=== PATIENT | male | born 1950 | race Caucasian/White ===

== ENCOUNTER 2017-01-07 08:08 | Outpatient (CLI) | payer MEDICARE, OTHER ==
[~2017-01-07] VITALS: Ht 188 cm; Wt 113.6 kg
--- NOTE | ~2017-01-07 | HEMODYNAMI ---
PATIENT:NAYA BLANTON MEDICAL RECORD: [id number] : 46 LOCATION:D.CAT ADMISSION DATE: 01/07/17 Generatedon:01/07/201711:30 Patient name: NAYA BLANTON Patient #: [id number] : 1950 Date of study: 01/07/2017 Page: Of Hemodynamic Procedure Report Patient Data Patient Demographics Procedure consent was obtained First Name: NAYA Gender: Male Last Name: HARVINDER : 1950 [facility] Initial: ANABELL Age: 66 year(s) Patient #: [id number] Race: SSN: [id number] Additional ID: [id number] Contact details Address: [place] [address] State: [place] City: [place] Zip code: [address] Past Medical History Allergies Allergen Reaction Date Comments Reported Other allergy 07/05/2015 Acetametaphin, Diclofenac, Sodium, Hydrocodone Admission Admission Data Admission Date: 01/07/2017 Admission Time: 8:08 Arrival Date: 01/07/2017 Arrival Time: 10:00 Admit Source: Other Insurance Payor: Medicare Height (in.): 74 BSA: 2.39 (m2) Height (cm.): 187.96 BMI: 32.23 (kg/m2) Weight (lbs.): 251 Weight (kg.): 113.85 Lab Results Lab Result Date: 01/07/2017 Lab Result Time: 0:00 Biochemistry Name Units Result Min Max BUN mg/dl 20 --(----)*- 7 18 Creatinine mg/dl 1 --(--*-)-- 0.6 1.3 CBC Name Units Result Min Max Hemoglobin g/dl 14.4 --(*---)-- 13.5 17.5 Procedure Procedure Types Cath Procedure Diagnostic Procedure LHC LHC w/Coronaries w/Grafts Miscellaneous Procedures Moderate Sedation up to 30 minutes Procedure Description Procedure Date Procedure Date: 01/07/2017 Procedure Start Time: 11:04 Procedure End Time: 11:27 Procedure Staff Name Function Dylan Dasilva MD Performing Physician Justina Agarwal RT Scrub Alejandrina Damon RN Nurse Sharon Cortes RT Monitor Procedure Data Cath Procedure Fluoroscopy Diagnostic fluoroscopy Total fluoroscopy Time: 7.6 time: 7.6 min min Diagnostic fluoroscopy Total fluoroscopy dose: dose: 1597 mGy 1597 mGy Contrast Material Contrast Material Type Amount (ml) Isovue 370 123 Entry Location Entry Primary Successful Side Size Upsize Upsize Entry Closure Succes sful Closure Location (Fr) 1 (Fr) 2 (Fr) Remarks Device Remarks Femoral Right 5 Fr 6 Fr Vascade artery Short Closure System Estimated blood loss: 5 ml Diagnostic catheters Device Type Used For End Catheter Placement Cordis 5Fr Pigtail LV Angiography Catheter (MP) Cordis 5Fr JL 4.0 Left Coronary Catheter (MP) Angiography Diagnostic Infinity 5Fr Left Coronary JL 5 catheter Angiography Cordis 5Fr 3DRC Catheter Right Coronary (MP) Angiography Diagnostic Infinity 5Fr Right Coronary AR 2 MOD catheter Angiography Procedure Complications No complications Procedure Medications Medication Administration Route Dosage Oxygen NC 2 l/min Lidocaine 2% added to field 20 Heparin Flush Bag added to field 2 bags (1000units/500ml NS) 0.9% NaCl I.V. 100 ml/hr Versed I.V. 1 mg Fentanyl I.V. 50 mcg Versed I.V. 1 mg Fentanyl I.V. 50 mcg Fentanyl I.V. 50 mcg Versed I.V. 1 mg Fentanyl I.V. 50 mcg Hemodynamics Rest BSA: 2.39 (m2) HGB: 14.4 (g/dl) O2 Consumption: Estimated: 273.38 (ml/min) O2 Co nsumption indexed: Estimated:114.38 (ml/min/m) Heart Rate: 66 (bpm) Pressure Samples Time Site Value (mmHg) Purpose Heart Use Rate(bpm) 11:06 LV 63/-26,-20 Snapshot 71 Snapshots Pre Cath Intra NCS Post Cath Vital Signs Time Heart Resp SPO2 NIBP (mmHg) Rhythm Pain Sedation Rate (ipm) (%) Status Level (bpm) 10:49:05 67 20 96 130/75(113) NSR 0 (11) 10(A) , No pain 10:53:15 61 17 99 127/75(90) NSR 0 (11) 10(A) , No pain 10:57:31 63 16 96 110/64(89) NSR 0 (11) 10(A) , No pain 11:01:39 62 17 98 108/66(84) NSR 0 (11) 10(A) , No pain 11:05:47 57 17 99 120/67(98) NSR 0 (11) 9(A) , No pain 11:10:00 63 16 97 118/63(98) NSR 0 (11) 9(A) , No pain 11:14:12 63 16 99 130/65(110) NSR 0 (11) 9(A) , No pain 11:18:30 67 17 97 111/65(87) NSR 0 (11) 9(A) , No pain 11:22:42 67 20 97 108/61(89) NSR 0 (11) 9(A) , No pain 11:26:50 63 17 99 123/63(107) NSR 0 (11) 10(A) , No pain Medications Time Medication Route Dose Verified Delivered Reason Notes Effe ctiveness by by 10:50:58 Oxygen NC 2 Dylan Buffie used for l/min Vidya Damon RN procedure 10:51:15 Lidocaine 2% added 20ml Dylan Dylan for local to vial Vidya Dasilva MD anesthetic field 10:51:22 Heparin Flush added 2 Dylan Dylan used for Bag to bags Vidya Dasilva MD procedure (1000units/500ml field NS) 10:51:31 0.9% NaCl I.V. 100 Dylan Buffie Per ml/hr Vidya Damon RN physician 10:59:07 Versed I.V. 1 mg Dylan Buffie for Vidya Damon RN sedation 10:59:12 Fentanyl I.V. 50 Dylan Buffie for mcg Vidya Damon RN sedation 11:05:29 Versed I.V. 1 mg Dylan Buffie for Vidya Damon RN sedation 11:05:32 Fentanyl I.V. 50 Dylan Buffie for mcg Vidya Damon RN sedation 11:10:05 Fentanyl I.V. 50 Dylan Buffie for mcg Vidya Damon RN sedation 11:15:50 Versed I.V. 1 mg Dylan Buffie for Vidya Damon RN sedation 11:15:54 Fentanyl I.V. 50 Dylan Buffie for mcg Ana MD Damon RN sedation Procedure Log Time Note 10:30:39 Alejandrina Damon RN sent for patient. Start room use. 10:39:38 Informed consent obtained and on chart 10:40:48 Admit Source: Other 10:40:54 Patient Height : 187.96 inches 10:41:00 Patient Weight : 113.85 lbs 10:41:17 Arrival Date: 01/07/2017 10:00:00 AM 10:41:48 Insurance Payor : Medicare 10:47:18 Diagnostic Cath Status : Elective 10:47:45 Time tracking: Regular hours 10:47:50 Plan of Care:Hemodynamics will remain stable., Cardiac rhythm will remain stable., Comfort level will be maintained., Respiratory function will remain adequate., Patient/ family verbilizes understanding of procedure., Procedure tolerated without complication., Recovers from procedure without complications.. 10:47:56 Patient received from Pre/Post Procedure Room to [facility] 2 Alert and oriented. Tansferred to table in Supine position. 10:47:57 Warm blankets applied, and lenore hugger turned on for patient comfort. 10:47:58 Correct patient and procedure confirmed by team. 10:48:02 ECG and BP/O2 sat monitors applied to patient. 10:48:02 Vital chart was started 10:48:03 Baseline sample Acquired. 10:48:08 Rhythm: sinus rhythm 10:48:09 Full Disclosure recording started 10:48:22 H&P Date Dictated: 01/03/2017 Within 30 days and on chart., H&P Addendum completed by physician on day of procedure. (MUST COMPLETE FOR ALL OUTPATIENTS). 10:48:23 Pre-procedure instructions explained to patient. 10:48:24 Pre-op teaching completed and patient verbalized understanding. 10:48:25 Family in waiting room. 10:48:26 Patient NPO since Midnight. 10:48:30 Is the patient allergic to Iodine/contrast media? No. 10:48:32 Was the patient premedicated? No 10:48:33 Is patient on blood thinner?Yes 10:48:39 ACC The patient was administered the following blood thiners within the last 24 hours: ACCPlavix 10:48:43 Patient diabetic? No. 10:48:51 Previous problem with sedation/anesthesia? No ? 10:48:52 Snore? Yes 10:50:58 Oxygen 2 l/min NC was given by Alejandrina Damon RN; used for procedure; 10:51:15 Lidocaine 2% 20ml vial added to field was given by Dylan Dasilva MD; for local anesthetic; 10:51:22 Heparin Flush Bag (1000units/500ml NS) 2 bags added to field was given by Dylan Dasilva MD; used for procedure; 10:51:31 0.9% NaCl 100 ml/hr I.V. was given by Alejandrian Damon RN; Per physician; 10:53:14 Sleep apnea? Yes 10:53:17 Deviated septum? No 10:53:17 Opens mouth fully? Yes 10:53:18 Sticks out tongue? Yes 10:53:20 Airway obstruction? No ? 10:53:23 Dentures? No ? 10:53:27 Pre procedure: right dorsailis pedis pulse 1+ Palpable, but thready & weak; easily obliterated 10:53:29 Patient pain scale 0/10 ?. 10:53:37 IV patent on arrival in left forearm with 0.9% NaCl at [facility]. 10:53:49 Lab results completed and on chart. 10:53:53 Right groin area was prepped with chlora-prep and draped in sterile fashion 10:53:54 Alarms reviewed by R. N. 10:53:54 Sharps counted by scrub and verified by R.N. 10:57:46 Physician arrived 10:57:46 --------ALL STOP TIME OUT------ 10:57:47 Final Timeout: patient, procedure, and site verified with staff and physician. All members of the team are in agreement. 10:57:50 Right groin site verified by team. 10:57:53 Physical assessment completed. ASA score P 2 - A patient with mild systemic disease as per Dylan Dasilva MD. 10:57:56 Sedation plan: IV Moderate Sedation Versed, Fentanyl 10:58:02 Use device set Femoral Dx 10:58:03 Acist Syringe opened to sterile field. 10:58:04 Bag Decanter opened to sterile field. 10:58:04 Medline Cath Pack opened to sterile field. 10:58:04 Terumo 5Fr Hosmer Sheath opened to sterile field. 10:58:05 St Ananda 260cm J .035 wire opened to sterile field. 10:58:06 Acist Hand Control opened to sterile field. 10:58:06 Acist Manifold opened to sterile field. 10:58:06 Diagnostic Infinity 5Fr Multipack catheter opened to sterile field. 10:58:07 Tegaderm 4 x 4 opened to sterile field. 10:59:07 Versed 1 mg I.V. was given by Alejandrina Damon RN; for sedation; 10:59:12 Fentanyl 50 mcg I.V. was given by Alejandrina Damon RN; for sedation; 11:04:20 Procedure started. 11:04:28 Local anesthetic to right femoral artery with Lidocaine 2% by Dylan Dasilva MD.INITIAL ACCESS ONLY 11:04:52 A 5 Fr sheath was inserted into the Right Femoral artery 11:05:04 A Cordis 5Fr Pigtail Catheter (MP) was advanced over the wire and used for LV Angiography. 11:05:29 Versed 1 mg I.V. was given by Alejandrina Damon RN; for sedation; 11:05:32 Fentanyl 50 mcg I.V. was given by Alejandrina Damon RN; for sedation; 11:06:12 LV hemodynamics recorded. 11:06:13 LV gram done using CHAMBERS 11:06:20 Injector settings: Ml/sec: 5, Volume: 15, 11:06:29 EF : 50 % 11:06:35 Catheter removed. 11:06:42 A Cordis 5Fr JL 4.0 Catheter (MP) was advanced over the wire and used for Left Coronary Angiography. 11:07:32 Catheter removed. unable to cannulate vessel. 11:07:51 A Diagnostic Infinity 5Fr JL 5 catheter was advanced over the wire and used for Left Coronary Angiography. 11:08:06 LCA angiography performed. 11:08:10 Injector settings: Ml/sec: 3, Volume: 6, 11:09:32 Catheter removed. 11:09:54 A Cordis 5Fr 3DRC Catheter (MP) was advanced over the wire and used for Right Coronary Angiography. 11:10:02 REYNOSO angiography performed. 11:10:05 Fentanyl 50 mcg I.V. was given by Alejandrina Damon RN; for sedation; 11:11:27 Catheter removed. 11:11:43 A Diagnostic Infinity 5Fr AR 2 MOD catheter was advanced over the wire and used for Right Coronary Angiography. 11:12:47 RCA angiography performed. 11:12:51 Injector settings: Ml/sec: 3, Volume: 6, 11:13:12 SVG to OM angiography performed. 11:13:26 Catheter removed. 11:13:44 Medtronic Launcher 6Fr AL 2.0 guide catheter opened to sterile field. 11:14:02 Terumo 6Fr Hosmer Sheath opened to sterile field. 11:14:02 sickweather BasixCompak Inflation Kit opened to sterile field. 11:14:06 Elias Auctomaticisper J 300cm 0.014 guide wire opened to sterile field. 11:15:11 Sheath upsized to a 6 Fr Short. 11:15:23 6 Fr al2 guide catheter was inserted over the wire 11:15:50 Versed 1 mg I.V. was given by Alejandrina Damon RN; for sedation; 11:15:54 Fentanyl 50 mcg I.V. was given by Alejandrina Damon RN; for sedation; 11:18:33 Guide Catheter removed. unable to cannulate vessel. 11:18:55 Medtronic Launcher 6Fr AL 1.0 guide catheter opened to sterile field. 11:22:41 Guide Catheter removed. unable to cannulate vessel. 11:23:06 6 Fr al2 guide catheter was inserted over the wire 11:23:37 whisper wire advanced. 11:23:52 Wire removed. 11:24:32 Vascade 6/7 Fr Closure Device opened to sterile field. 11:24:42 Guide Catheter removed. unable to cannulate vessel. 11:25:15 Sheath removed intact; hemostasis achieved with Vascade Closure System to the Right Femoral artery. 11:25:36 Procedure ended.(Physican Out) 11:26:01 Fluoroscopy time 07.60 minutes. 11:26:19 Fluoroscopy dose: 1597 mGy 11:26:19 Flurop Dose total: 1597 11:26:23 Contrast amount:Isovue 370 123ml. 11:26:25 Sharps counted by scrub and verified by R.N. 11:26:26 Insertion/operative site no bleeding no hematoma. 11:26:30 Post-op/insertion site Right Femoral artery dressed using a 4 x 4 and Tegaderm. 11:26:33 Post right femoral artery:stable 11:26:35 Post Procedure Pulses reassessed and unchanged 11:26:40 Post procedure rhythm: unchanged. 11::43 Estimated blood loss: 5 ml 11::45 Post procedure instruction explained to patient.Patient verbalizes understanding. 11::45 Patient needs reinforcement of post procedure teaching. 11:26:52 Procedure type changed to Cath procedure, Diagnostic procedure, LHC, LHC w/Coronaries w/Grafts, Miscellaneous Procedures, Moderate Sedation up to 30 minutes 11::53 Procedure and supply charges have been captured, reviewed, submitted and are correct. 11:27:00 Procedure Complication : No complications 11:27:10 Vital chart was stopped 11:27:11 See physician's report for complete and final results. 11:27:18 Report given to Pre/Post Procedure Room. 11::22 Patient transfered to Pre/Post Procedure Room with Stretcher. 11:27:24 Procedure ended. 11:27:24 Full Disclosure recording stopped 11::28 End room use (Document Last) 11:30:22 Lab Result : BUN 20 mg/dl 11::22 Lab Result : Hemoglobin 14.4 g/dl 11:30:22 Lab Result : Creatinine 1 mg/dl Device Usage Item Name Manufacture Quantity Catalog Hospital Part Current Minima l Lot# / Number Charge Number Stock Stock Serial# Code Acist Acist 1 68402 205720 243284 276813 20 Syringe Medical Systems Inc Bag Microtek 1 2002S 405345 56278 205275 5 Decanter Medical Inc. Medline Cardinal 1 [id number] 577056 51800 099681 5 Cath Pack Health Terumo 5Fr Terumo 1 [id number] 101500 110498 996454 [address] Ananda 1 196961 029359 864001 188084 30 260cm J .035 wire Acist Hand Acist 1 98042 023418 974904 947951 5 Control Medical Systems Inc Acist Acist 1 54710 993218 198510 785820 5 Manifold Medical Systems Inc Diagnostic Cardinal 1 [id number] 274827 69317 996427 30 Mode De Faireity Ella Health 5Fr Multipack catheter Tegaderm 4 3M 1 1626W 784119 119464 179679 5 x 4 Cordis 5Fr Cardinal 1 987387 5 Pigtail Health Catheter (MP) Cordis 5Fr Cardinal 1 282070 5 JL 4.0 Health Catheter (MP) Diagnostic Cardinal 1 [id number] 146705 306839 627594 5 Infinity Health 5Fr JL 5 catheter Cordis 5Fr Cardinal 1 885787 5 3DRC Health Catheter (MP) Diagnostic Cardinal 1 [id number] 075405 163640 678857 20 Infinity Health 5Fr AR 2 MOD catheter Medtronic Medtronic 1 [id number] 692474 75428 386763 1 Launcher 6Fr AL 2.0 guide catheter Terumo 6Fr Terumo 1 FSR224 202437 006719 168140 40 Hosmer Sheath Merit Merit 1 KN2447 468060 165535 171976 15 BasixCompak Medical Inflation Kit Elias Elias 1 [id number] 250690 298071 887352 5 Whisper J Vascular 300cm 0.014 guide wire Medtronic Medtronic 1 [id number] 897113 40879 828496 1 Launcher 6Fr AL 1.0 guide catheter Vascade 6/7 Cardiva 1 [id number] 920805 418101 697023 5 Fr Closure Medical, Device Inc. Signature Audit [place] Stage Time Signature Unsigned Intra-Procedure 01/07/2017 Sharon Cortes 11:30:44 AM RT(R) Signatures Monitor : Sharon Cortes RT Signature : Date : Time : [id number] [place] [address]
[~2017-01-07 08:08] MED LIST: ALEVE220 MG PO; BAYER CHEWABLE81 MG PO; DILAUDID2 MG PO; DIOVAN80 MG PO; FOLIC ACID1 MG PO; IMDUR30 MG PO; OMEGA-3100 MG PO; OXYCONTIN10 MG PO; PLAVIX75 MG PO; PRILOSEC20 MG PO; RED YEAST RICE600 MG PO; TOPROL XL25 MG PO; ZOCOR40 MG PO
[2017-01-07] MEDS ORDERED: LIPITOR20 MG PO (08:27)
[2017-01-07 08:33] VITALS: BP 146/66; Ht 188 cm; Wt 113.6 kg
[2017-01-07 08:55] LABS: BASOPHILS 0.4 % (0.0-2.0); EOSINOPHILS 3.2 % (0-7); HEMATOCRIT 42.7 % (42.0-54.0); HEMOGLOBIN 14.4 g/dL (13.5-17.5); IMMATURE GRANULOCYTES 0.2 % (0-5); LYMPHOCYTES 28.2 % (15-50); MCH 31.7 pg (26.0-34.0); MCHC 33.7 g/dL (31.0-37.0); MCV 94.1 fL (80.0-100.0); MEAN PLATELET VOLUME 9.9 fL (7.4-10.4); MONOCYTES 12.2 % (2-11); NEUTROPHILS 55.8 % (40-80); PLATELET COUNT 178 10x3/uL (130-400); RBC 4.54 10x6/uL (4.20-6.10); RDW 12.7 % (11.5-14.5); WBC 5.4 10x3/uL (4.8-10.8)
[2017-01-07 09:06] LABS: CALC OSMOLALITY 281 mosm/kg (275-300); CALCIUM 8.7 mg/dL (8.5-10.1); CARBON DIOXIDE 28.5 mmol/L (21.0-32.0); CHLORIDE - SERUM 104 mmol/L (98-107); GLUCOSE 97 mg/dL (74-106); POTASSIUM - SERUM 4.5 mmol/L (3.5-5.1); SODIUM 140 mmol/L (136-145); UREA NITROGEN 20 mg/dL (7-18); eGFR NON AFRICAN AMERICAN 79 mL/min (90-120)
--- NOTE | 2017-01-07 12:01 | NUR ---
RESTING QUIELTY WITH NO DISTRESS NOTED. VSS WITH 6 FR VASCADE R/GROIN CDI NO BLEEDING NO HEAMTOMA NOTED
--- NOTE | 2017-01-07 12:30 | NUR ---
IN BED SLEEPING. AT BEDSIDE. VSS. NO C/O CHEST PAIN OR NAUSEA. RIGHT GROIN DRESSING CDI, NO BLEEDING OR HEMATOMA NOTED.
--- NOTE | 2017-01-07 13:00 | NUR ---
RESTING IN BED WITH EYES CLOSED. VSS. NO C/O AT THIS TIME. RIGHT GROIN DRSG CDI, NO BLEEDING OR HEMATOMA NOTED.
--- NOTE | 2017-01-07 13:53 | NUR ---
SANDWICH TRAY GIVEN. DENIES ANY NAUSEA. VSS.
--- NOTE | 2017-01-07 14:14 | NUR ---
HOB ELEVATED. GROIN DRSG CDI. LEFT HAND PIV D/C'D WITH CATHETER INTACT. UP TO GET DRESSED.
--- NOTE | 2017-01-07 14:25 | NUR ---
UP TO RESTROOM TO VOID.
--- NOTE | 2017-01-07 14:30 | NUR ---
DISCHARGE INSTRUCTIONS GIVEN, VERBALIZED UNDERSTANDING.
--- NOTE | 2017-01-07 14:39 | NUR ---
PT TAKEN VIA WHEELCHAIR BY MEMBER OF CATH CARE TEAM. LEFT FACILITY WITH FAMILY MEMBER AND ALL PERSONAL BELONGINGS.
--- NOTE | 2017-01-17 10:08 | OP ---
PATIENT NAME: NAYA BLANTON MEDICAL RECORD: [id number] :46 LOCATION:D.CAT ADMISSION DATE: SURGEON: SONI CHAVEZ MD DATE OF OPERATION: 01/07/2017 PROCEDURES: 1. Left heart catheterization. 2. Selective coronary angiography. 3. Left ventriculogram. INDICATION: Angina. DESCRIPTION OF PROCEDURE: After informed consent was obtained and after detailed explanation of risks, benefits as well as alternative therapies, the patient elected to proceed with angiogram and heart catheterization. The right femoral area was prepped and draped in normal sterile fashion. The right femoral artery was cannulated via modified Seldinger technique with placement of 6-Serbian sheath. All catheters exchanged through this sheath. FINDINGS: The left ventriculogram was performed in a standard 30-degree CHAMBERS view reveals good cardiac wall motion throughout all segments. Overall ejection fraction estimated 60%. SELECTIVE CORONARY ANGIOGRAPHY: 1. Left main showed no significant angiographic disease. 2. Left anterior descending has previously placed stents. These are widely patent with no significant restenosis. No disease elsewise throughout the LAD or its branches. 3. Left anterior descending has a high-grade stenosis in the mid vessel. 4. REYNOSO to the LAD is widely patent. 5. Left circumflex itself has mild irregularities, no flow-limiting stenosis. First obtuse marginal was totally occluded. 6. Vein graft to the first obtuse marginal was widely patent. 7. The right coronary has previously placed stents, these are widely patent with no significant restenosis. OVERALL IMPRESSION: Wide patency of the left internal mammary artery to the left anterior descending vein graft to the circumflex and wide patency of the stents to the right coronary artery. Center medical management on treatment of the anginal symptomatology. TRANSINT:[id number] Voice Confirmation ID: [id number] DOCUMENT ID: [id number] SONI CHAVEZ MD at 1008 CC: [id number] DICTATION DATE: 01/07/17 1129 WASH OIL COOLER OPERATOR: 01/07/17 1848 DEP CLI 01/07/17 [place] [id number]
== END 2017-01-07 14:40 | disposition home or self-care (01) ==
LOC: D.CATH 08:08
PROVIDERS: Internal Medicine Interventional Cardiology
DX: I25.119 Atherosclerotic heart disease of native coronary artery with unspecified angina pectoris (principal); Z95.5 Presence of coronary angioplasty implant and graft; Z95.1 Presence of aortocoronary bypass graft

== ENCOUNTER 2017-06-02 18:44 | Emergency (ER) | payer MEDICARE, OTHER ==
[2017-01-07 08:33] VITALS: BMI 32.1
[~2017-06-02 18:44] MED LIST changes: +LIPITOR20 MG PO
[2017-06-02 20:02] LABS: BASOPHILS 0.2 % (0-2); HEMATOCRIT 44.6 % (42.0-54.0); HEMOGLOBIN 15.1 g/dL (13.5-17.5); IMMATURE GRANULOCYTES 0.1 % (0-5); LYMPHOCYTES 13.6 % (15-50); MCH 31.4 pg (26.0-34.0); MCHC 33.9 g/dL (31.0-37.0); MCV 92.7 fL (80.0-100.0); MEAN PLATELET VOLUME 9.6 fL (7.4-10.4); MONOCYTES 11.5 % (2-11); NEUTROPHILS 72.6 % (40-80); PLATELET COUNT 173 10x3/uL (130-400); RBC 4.81 10x6/uL (4.20-6.10); RDW 12.8 % (11.5-14.5); WBC 8.5 10x3/uL (4.8-10.8)
[2017-06-02 20:18] LABS: APPEARANCE CLEAR (CLEAR); BILIRUBIN NEGATIVE (NEGATIVE); COLOR COLORLESS (YELLOW); GLUCOSE NEGATIVE (NEGATIVE); KETONE NEGATIVE (NEGATIVE); LEUKOCYTE ESTERASE NEGATIVE (NEGATIVE); NITRITE NEGATIVE (NEGATIVE); PROTEIN NEGATIVE (NEGATIVE); UROBILINOGEN NORMAL (NORMAL)
[2017-06-02 20:24] LABS: ALBUMIN 3.8 g/dL (3.4-5.0); ANION GAP 14.4 mmol/L (8-16); BILIRUBIN - TOTAL 0.67 mg/dL (0.2-1.3); CALCIUM 8.9 mg/dL (8.5-10.1); CARBON DIOXIDE 28.4 mmol/L (21.0-32.0); CREATININE - SERUM 1.2 mg/dL (0.6-1.3); POTASSIUM - SERUM 3.8 mmol/L (3.5-5.1); PROTEIN - SERUM 7.4 g/dL (6.4-8.2)
== END 2017-06-02 22:23 | disposition home or self-care (01) ==
LOC: D.ER 18:44
PROVIDERS: Emergency Medicine
DX: N13.30 Unspecified hydronephrosis (principal); N23 Unspecified renal colic; I25.810 Atherosclerosis of coronary artery bypass graft(s) without angina pectoris; I10 Essential (primary) hypertension

== ENCOUNTER 2017-11-02 06:16 | Day surgery (SDC) | payer MEDICARE, OTHER ==
[2017-11-01 15:55] LABS: HEMATOCRIT 44.3 % (42.0-54.0); MCH 31.8 pg (26.0-34.0); MCHC 33.9 g/dL (31.0-37.0); MCV 94.1 fL (80.0-100.0); MEAN PLATELET VOLUME 9.2 fL (7.4-10.4); RBC 4.71 10x6/uL (4.20-6.10); RDW 12.5 % (11.5-14.5); WBC 6.3 10x3/uL (4.8-10.8)
[2017-11-01 16:07] LABS: ANION GAP 7.6 mmol/L (8-16); CALCIUM 8.7 mg/dL (8.5-10.1); CARBON DIOXIDE 29.2 mmol/L (21.0-32.0); CREATININE - SERUM 1.1 mg/dL (0.6-1.3); POTASSIUM - SERUM 3.8 mmol/L (3.5-5.1)
[~2017-11-02] VITALS: Ht 188 cm; Wt 111.6 kg
[~2017-11-02 06:16] MED LIST changes: +NAPROXEN SODIU220 M1 PO
[2017-11-02] MEDS ORDERED: BACTRIM DS TABL1 TAB PO (07:16)
[2017-11-02 07:19] VITALS: BP 123/62; Ht 188 cm; Wt 111.6 kg
--- NOTE | 2017-11-02 10:39 | NUR ---
1030--PT VOIDS, IV EVER JONES RN
--- NOTE | 2017-11-02 10:58 | NUR ---
1050--DISCHARGE INSTRUCTIONS GIVEN, PT VERBALIZES UNDERSTANDING. PT OFF UNIT VIA JOHN. KAREN GONZALEZ
--- NOTE | 2017-11-02 13:45 | OP ---
PATIENT NAME: NAYA BLANTON MEDICAL RECORD: [id number] :46 LOCATION:[facility] ADMISSION DATE: SURGEON: NICOLAS MICHAELS MD DATE OF OPERATION: 11/02/2017 SURGEON: Nicolas Michaels MD ANESTHESIA: MAC by Rodrigo Sellers CRNA. PREOPERATIVE DIAGNOSIS: Elevated PSA 4.1 with 12% free PSA. PROCEDURE: Transrectal ultrasound of the prostate, prostate biopsy. FINDINGS: A 23-gram prostate, no hypoechoic areas. SPECIMENS: Prostate biopsy cores. BLOOD LOSS: Minimal. CLINICAL HISTORY: This is a 67-year-old male referred with an elevated PSA of 4.3. This was drawn 6 months ago. His latest PSA on 10/13/2017 was 4.1. The free PSA is 12%, which has statistically a 28% probability of showing prostate cancer. In his family history, 1 nephew has prostate cancer. He has no voiding symptoms to speak of. He comes to have a prostate biopsy. He has taken prophylactic antibiotics at home and he also had a Fleet enema the night before the procedure. He is allergic to VOLTAREN AND VICODIN. He does have cardiac clearance from Dr. Dasilva to hold his Plavix and aspirin. He comes today to have the procedure done. DESCRIPTION OF PROCEDURE: The patient was given IV sedation. He was placed in the dorsal lithotomy position. The transrectal ultrasound probe was placed into the rectum and prostate size measurements were obtained. The prostate size was estimated to be 23 grams. We then obtained sextant biopsies with at least 3 cores from each sextant. Once these were done, the specimens were sent to pathology in formalin. The patient was awakened and brought to the recovery room. I will see him in followup next week to review the results of the pathology with him. TRANSINT:[id number] Voice Confirmation ID: [id number] DOCUMENT ID: [id number] NICOLAS MICHAELS MD at 1345 CC: [id number] DICTATION DATE: 11/02/17904 COKE WORKER: 11/02/17 1218 [facility] 11/02/17 [place] [place] [address]
== END 2017-11-02 10:50 | disposition home or self-care (01) ==
LOC: D.OPS 06:16 → D.PAN 08:00 → D.OPS 10:50
PROVIDERS: Anesthesiology
DX: R97.20 Elevated prostate specific antigen [PSA] (principal); I25.10 Atherosclerotic heart disease of native coronary artery without angina pectoris; I10 Essential (primary) hypertension; G47.30 Sleep apnea, unspecified; K21.9 Gastro-esophageal reflux disease without esophagitis; Z01.812 Encounter for preprocedural laboratory examination

== ENCOUNTER → 2017-11-11 19:57 | Outpatient (CLI) | payer MEDICARE, OTHER ==
[2017-11-02 07:19] VITALS: BMI 31.6
[~2017-11-11 19:57] MED LIST changes: +BACTRIM DS TABL1 TAB PO
[2017-11-11 20:25] LABS: APPEARANCE HAZY (CLEAR); COLOR YELLOW (YELLOW)
[2017-11-11 20:26] LABS: BILIRUBIN NEGATIVE (NEGATIVE); GLUCOSE NEGATIVE (NEGATIVE); KETONE NEGATIVE (NEGATIVE); NITRITE POSITIVE (NEGATIVE); PROTEIN NEGATIVE (NEGATIVE); UROBILINOGEN NORMAL (NORMAL)
[2017-11-11 20:27] LABS: BACTERIA MANY /hpf (NONE SEEN); RED CELLS - URINE 0-5 /hpf (0-5); WHITE CELLS - URINE >50 /hpf (0-5)
== END | disposition home or self-care (01) ==
LOC: D.LAB 19:57
PROVIDERS: Urology
DX: R82.90 Unspecified abnormal findings in urine (principal)

== ENCOUNTER → 2017-11-17 08:02 | Outpatient (CLI) | payer MEDICARE, OTHER ==
[2017-11-02 07:19] VITALS: BMI 31.6
== END | disposition home or self-care (01) ==
LOC: D.NM 08:02
DX: C61 Malignant neoplasm of prostate (principal)

== ENCOUNTER 2018-02-03 09:07 | Outpatient (CLI) | payer MEDICARE, OTHER ==
[2017-11-02 07:19] VITALS: BMI 31.6
--- NOTE | ~2018-02-03 | OP ---
PATIENT NAME: NAYA BLANTON MEDICAL RECORD: [id number] :46 LOCATION:D.CAT ADMISSION DATE: SURGEON: SONI CHAVEZ MD DATE OF OPERATION: 02/03/2018 PROCEDURES: 1. Left heart catheterization. 2. Selective coronary angiography. 3. Left ventriculogram. 4. Vein graft angiography. 5. REYNOSO angiography. INDICATION: Angina and coronary artery disease. PROCEDURE IN DETAIL: After informed consent was obtained and after detailed explanation of risks, benefits as well as alternative therapies, the patient elected to proceed with angiogram and angioplasty. The right femoral area was prepped and draped in normal sterile fashion. The right femoral artery was cannulated via modified Seldinger technique with placement of 6-Belarusian sheath. All catheters exchanged through this sheath. FINDINGS: The left ventriculogram was performed in standard 30-degree CHAMBERS view, reveals good cardiac wall motion throughout all segments. Overall ejection fraction estimated 60%. SELECTIVE CORONARY ANGIOGRAPHY: 1. Left main is with no significant angiographic disease. 2. Left anterior descending has a 90% stenosis proximally. 3. REYNOSO to the LAD is widely patent. Distal LAD is widely patent. 4. Left circumflex is widely patent; however, the obtuse marginal has 95% stenosis. 5. Vein graft to the left circumflex obtuse marginal system is widely patent. 6. The right coronary has previously placed stents, these are widely patent with no restenosis disease elsewise. OVERALL IMPRESSION: Wide patency of both grafts on the left and stents on the right. Continue medical management of the coronary artery disease and cardiac risk factors. TRANSINT:[id number] Voice Confirmation ID: [id number] DOCUMENT ID: [id number] SONI CHAVEZ MD at 1056 CC: [id number] DICTATION DATE: 02/03/18 1227 RN CHEMICAL DEPENDENCY: 02/03/18 1438 DEP CLI 02/03/18 [place] [id number] [place] [id number]
--- NOTE | ~2018-02-03 | CN ---
PATIENT NAME:NAYA ROCHA MEDICAL RECORD: [id number] : 46 LOCATION:D.CAT ADMIT DATE: ACCOUNT: [id number] CONSULTING PHYSICIAN: SONI CHAVEZ MD REFERRING PHYSICIAN: LESLEY FORD MD DATE OF CONSULTATION: 02/03/2018 DIAGNOSES: 1. Unstable angina. 2. Coronary artery disease. 3. Previous coronary bypass graft surgery, 3 vessels, in 2006. 4. PTCA and stent, last being 2015. 5. Hypertension. 6. Hyperlipidemia. HISTORY OF PRESENT ILLNESS: Mr. Rocha presents with anginal symptomatology for the last 2 days. He has had on and off chest pain, today it got worse. It is like that of his previous angina. PHYSICAL EXAMINATION: GENERAL APPEARANCE: Well-nourished, well-developed, appears stated age. Level of distress, comfortable. PSYCHIATRIC: Mental status, alert, normal affect. Orientation, oriented to time, place and person. EYES: Lids and conjunctiva, noninjected. No discharge, no pallor. ENT: Lips, teeth, gums, normal dentition. Oropharynx, no cyanosis, no pallor. NECK: Carotid arteries, bilateral normal upstroke, no bruits, no thrills. JUGULAR VEINS: No jugular venous pressure or distention. CERVICAL LYMPH NODES: Nontender, nonenlarged. THYROID: Not enlarged. Nontender. No nodules. LUNGS: Respiratory effort, unlabored. CHEST: Normal curvature. No thoracic deformity. No chest wall tenderness. Percussion, resonant. Auscultation, clear. No wheezes, no rales, no rhonchi. CARDIOVASCULAR: Precordial exam, nondisplaced. No heaves or pericardial thrills. Rate and rhythm, regular. Heart sounds, normal S1, normal S2. No S3, no gallop, no rub. Systolic murmur, not heard. Diastolic murmur, not heard. EXTREMITIES: No cyanosis, no edema. Peripheral pulses, full and equal in all extremities, except as noted. No bruits appreciated. ABDOMEN: Soft, nondistended. Normal aorta. No bruit. Nontender. No masses. Liver, nontender, no hepatomegaly. Spleen, nontender, no splenomegaly. MUSCULOSKELETAL: No joint tenderness. No joint swelling. No erythema. NEUROLOGICAL: Normal gait, normal strength, normal tone. SKIN: Warm and dry. REVIEW OF SYSTEMS: The patient reports easy bruising but reports no swollen glands. The patient reports no fever, no night sweats, no significant weight gain, no significant weight loss. No significant exercise tolerance. The patient reports no dry eyes, no irritation, no vision change. Patient reports no difficulty hearing and no ear pain. Patient reports no frequent nose bleeds or nose and sinus problems. Patient reports on arm pain on exertion. No shortness of breath while lying down. No history of heart murmur. Patient reports no cough, no wheezing or coughing up blood. Patient reports no abdominal pain, no vomiting. Normal appetite. No diarrhea and not vomiting blood. No nausea and no constipation. Patient reports no incontinence. No difficulty urinating. No hematuria. No increased frequency. Patient reports CONSULT REPORT [id number] NAYA ROCHA no muscle aches. No weakness, no arthralgias, no back pain. No swelling of the extremities. Patient reports no abnormal mole, no jaundice, no rashes. Reports no loss of consciousness. No weakness and no numbness. No seizures, dizziness, or headaches. The patient reports no depression, no sleep disturbance, feeling safe in a relationship and no alcohol abuse. Patient reports on fatigue. Reports no runny nose or sinus pressure. No itching, no hives, and no frequent sneezing. OVERALL IMPRESSION: Anginal symptomatology, unstable. Most likely, he has recurrent hemodynamically significant coronary artery disease. We will proceed with coronary angiography. Further care depends upon the findings of the angiography. TRANSINT:[id number] Voice Confirmation ID: [id number] DOCUMENT ID: [id number] SONI CHAVEZ MD at 1056 CC: [id number] DICTATION DATE: 02/03/18 1022 ASSET PROTECTION REPRESENTATIVE: 02/03/18 1100 DEP CLI 02/03/18 [place] [id number] [place] [id number]
--- NOTE | ~2018-02-03 | HEMODYNAMI ---
PATIENT:NAYA BLANTON MEDICAL RECORD: [id number] : 46 [id number] ADMISSION DATE: 02/03/18 Generatedon:02/03/201811:45 Patient name: NAYA BLANTON Patient #: [id number] : 1950 Date of study: 02/03/2018 Page: Of Hemodynamic Procedure Report Patient Data Patient Demographics Procedure consent was obtained First Name: NAYA Gender: Male Last Name: HARVINDER : 1950 [facility] Initial: ANABELL Age: 67 year(s) Patient #: [id number] Race: SSN: [id number] Additional ID: [id number] Contact details Address: [place] [address] State: [place] City: [place] Zip code: [address] Past Medical History Allergies Allergen Reaction Date Comments Reported Other allergy 07/05/2015 Acetametaphin, Diclofenac, Sodium, Hydrocodone Other allergy 02/03/2018 SAYDA FLEMING Admission Admission Data Admission Date: 02/03/2018 Admission Time: 9:07 Lab Results Lab Result Date: 02/03/2018 Lab Result Time: 0:00 Biochemistry Name Units Result Min Max BUN mg/dl 20 --(----)*- 7 18 Creatinine mg/dl 1.2 --(---*)-- 0.6 1.3 CBC Name Units Result Min Max Hemoglobin g/dl 14.5 --(*---)-- 13.5 17.5 Procedure Procedure Types Cath Procedure Diagnostic Procedure LHC LHC w/Coronaries w/Grafts Sedation Charges Moderate Sedation up to 15 minutes Procedure Description Procedure Date Procedure Date: 02/03/2018 Procedure Start Time: 11:22 Procedure End Time: 11:45 Procedure Staff Name Function Dylan Dasilva MD Performing Physician Bushra Rolle RT Monitor Chi Mcclain RN Nurse Shiela Shell RT Scrub Procedure Data Cath Procedure Fluoroscopy Diagnostic fluoroscopy Total fluoroscopy Time: 5.7 time: 5.7 min min Diagnostic fluoroscopy Total fluoroscopy dose: 965 dose: 965 mGy mGy Contrast Material Contrast Material Type Amount (ml) Isovue 300 140 Entry Location Entry Primary Successful Side Size Upsize Upsize Entry Closure Succes sful Closure Location (Fr) 1 (Fr) 2 (Fr) Remarks Device Remarks Femoral Right 6 Fr Exoseal artery Short Estimated blood loss: 5 ml Diagnostic catheters Device Type Used For End Catheter Placement MULTIPACK Pigtail 5 Fr Procedure catheter MULTIPACK JL 4.0 5Fr Procedure catheter MULTIPACK 3DRC 5Fr Procedure catheter Procedure Complications No complications Procedure Medications Medication Administration Route Dosage 0.9% NaCl I.V. 100 ml/hr Oxygen NC 2 l/min Heparin Flush Bag added to field 2 bags (1000units/500ml NS) Lidocaine 2% added to field 20 Versed I.V. 2 mg Fentanyl I.V. 100 mcg Versed I.V. 1 mg Versed I.V. 1 mg Hemodynamics Rest HGB: 14.5 (g/dl) Heart Rate: 69 (bpm) Snapshots Pre Cath Intra NCS Post Cath Vital Signs Time Heart Resp SPO2 etCO2 NIBP (mmHg) Rhythm Pain Sedation Rate (ipm) (%) (mmHg) Status Level (bpm) 10:57:21 61 14 99 34.1 145/75(105) NSR 0 (11) 10(A) , No pain 11:02:53 66 13 98 34.1 119/72(98) NSR 0 (11) 10(A) , No pain 11:08:16 70 13 98 37.1 129/63(84) NSR 0 (11) 10(A) , No pain 11:12:59 69 14 98 35.6 112/64(87) NSR 0 (11) 10(A) , No pain 11:17:39 72 14 97 36.4 116/67(84) NSR 0 (11) 10(A) , No pain 11:22:20 69 14 99 33.3 121/71(99) NSR 0 (11) 9(A) , No pain 11:27:02 72 13 97 0 121/68(94) NSR 0 (11) 9(A) , No pain 11:31:47 73 15 98 38.6 120/60(88) NSR 0 (11) 10(A) , No pain 11:36:28 77 15 98 38.6 122/70(101) NSR 0 (11) 10(A) , No pain 11:41:08 71 16 97 34.8 112/66(85) NSR 0 (11) 10(A) , No pain Medications Time Medication Route Dose Verified Delivered Reason Notes Effe ctiveness by by 11:03:07 0.9% NaCl I.V. 100 Chi Chi Per ml/hr Johny Mcclain physician RN RN 11:03:19 Oxygen NC 2 Chi Chi Per l/min Lorbernie Crumigan physician RN RN 11:03:29 Heparin Flush added 2 Chi Chi used for Bag to bags Lorigan Lorigan procedure (1000units/500ml field RN RN NS) 11:03:41 Lidocaine 2% added 20ml Chi Chi for local to vial Lorigan Lorigan anesthetic field RN RN 11:17:05 Versed I.V. 2 mg Chi Chi for Lorigan Lorigan sedation RN RN 11:17:17 Fentanyl I.V. 100 Chi Chi for mcg Lorigan Lorigan sedation RN RN 11:25:04 Versed I.V. 1 mg Chi Chi for Lorigan Lorigan sedation RN RN 11:37:36 Versed I.V. 1 mg Chi Chi for Lorigan Lorigan sedation RN delivery technician Log Time Note 10:40:18 Time tracking: Regular hours 10:40:22 Plan of Care:Hemodynamics will remain stable., Cardiac rhythm will remain stable., Comfort level will be maintained., Respiratory function will remain adequate., Patient/ family verbilizes understanding of procedure., Procedure tolerated without complication., Recovers from procedure without complications.. 10:40:38 Bushra Rolle RT(R) sent for patient. Start room use. 10:51:59 Patient received from ED to CCL 1 Alert and oriented. Tansferred to table in Supine position. 10:52:00 Warm blankets applied, and lenore hugger turned on for patient comfort. 10:52:01 Correct patient and procedure confirmed by team. 10:52:02 Signed procedure consent form obtained from patient. 10:52:04 ECG and BP/O2 sat monitors applied to patient. 10:52:04 Full Disclosure recording started 10:56:20 Vital chart was started 10:56:23 Rhythm: sinus rhythm 10:56:40 H&P Date Dictated: 02/03/2018 Within 30 days and on chart., ER History on chart., New H&P dictated by physician.. 10:56:42 Pre-procedure instructions explained to patient. 10:56:42 Pre-op teaching completed and patient verbalized understanding. 10:56:44 Family in waiting room. 10:56:46 Patient NPO since Midnight. 11:03:07 0.9% NaCl 100 ml/hr I.V. was administered by Chi Mcclain RN; Per physician; 11:03:10 Baseline sample Acquired. 11:03:19 Oxygen 2 l/min NC was administered by Chi Mcclain RN; Per physician; 11:03:29 Heparin Flush Bag (1000units/500ml NS) 2 bags added to field was administered by Chi Mcclain RN; used for procedure; 11:03:33 Patient allergic to Other allergyVICITAN, VOLTARIAN 11:03:35 Is the patient allergic to Iodine/contrast media? No. 11:03:37 Is patient on blood thinner?Yes 11:03:40 ACC The patient was administered the following blood thiners within the last 24 hours: ACCPlavix 11:03:41 Lidocaine 2% 20ml vial added to field was administered by Chi Mcclain RN; for local anesthetic; 11:03:42 Patient diabetic? No. 11:03:47 Previous problem with sedation/anesthesia? No ? 11:03:48 Snore? Yes 11:03:49 Sleep apnea? Yes 11:03:50 Deviated septum? No 11:03:52 Opens mouth fully? Yes 11:03:53 Sticks out tongue? Yes 11:03:55 Airway obstruction? No ? 11:03:57 Dentures? Yes ? 11:04:01 Pre procedure: right dorsailis pedis pulse 2+ Normal; easily identifiable; not easily obliterated 11:04:13 IV patent on arrival in left hand with 0.9% NaCl at [facility]. 11:05:07 Lab Result : BUN 20 mg/dl 11:05:07 Lab Result : Hemoglobin 14.5 g/dl 11:05:07 Lab Result : Creatinine 1.2 mg/dl 11:05:09 Lab results completed and on chart. 11:05:11 Lab results completed and on chart. 11:05:16 Right groin area was prepped with chlora-prep and draped in sterile fashion 11:05:17 Alarms reviewed by R. N. 11:05:18 Sharps counted by scrub and verified by R.N. 11:05:38 Use device set Femoral Dx 11:05:40 ACIST Syringe (96737) opened to sterile field. 11:05:40 Bag Decanter (2002S) opened to sterile field. 11:05:42 ACIST Hand Control (10926) opened to sterile field. 11:05:42 ACIST Manifold (95339) opened to sterile field. 11:05:43 Tegaderm 4 x 4 (1626W) opened to sterile field. 11:05:45 Medline Cath Pack ([id number]) opened to sterile field. 11:05:46 DIAGNOSTIC WIRE .035 260cm J wire (918562) opened to sterile field. 11:05:48 PERCUTANEOUS ENTRY 19GA needle opened to sterile field. 11:05:50 DIAGNOSTIC Multipack 5Fr catheter set (WH5109) opened to sterile field. 11:08:44 Zero performed for pressure channel P1 11:08:58 Zero performed for pressure channel P1 11:16:40 --------ALL STOP TIME OUT------ 11:16:41 Final Timeout: patient, procedure, and site verified with staff and physician. All members of the team are in agreement. 11:16:43 Right groin site verified by team. 11:16:45 Physical assessment completed. ASA score P 2 - A patient with mild systemic disease as per Dylan Dasilva MD. 11:16:49 Sedation plan: IV Moderate Sedation Medication:Versed, Fentanyl 11:17:05 Versed 2 mg I.V. was administered by Chi Mcclain RN; for sedation; 11:17:17 Fentanyl 100 mcg I.V. was administered by Chi Mcclain RN; for sedation; 11:20:14 SHEATH 6FR [place] (OGT305) opened to sterile field. 11:22:30 Procedure started. 11:22:34 Local anesthetic to right femoral artery with Lidocaine 2% by Dylan Dasilva MD.INITIAL ACCESS ONLY 11:24:20 A 6 Fr Short sheath was inserted into the Right Femoral artery 11:24:32 A MULTIPACK Pigtail 5 Fr catheter was advanced over the wire and used for Procedure. 11:24:37 LV gram done using CHAMBERS 11:24:39 Injector settings: Ml/sec: 10, Volume: 20, 11:24:54 EF : 55 % 11:24:56 Catheter removed. 11:25:04 Versed 1 mg I.V. was administered by Chi Mcclain RN; for sedation; 11:25:06 A MULTIPACK JL 4.0 5Fr catheter was advanced over the wire and used for Procedure. 11:25:58 LCA angiography performed. 11:26:31 Catheter removed. 11:26:43 A MULTIPACK 3DRC 5Fr catheter was advanced over the wire and used for Procedure. 11:27:30 REYNOSO to LAD angiography performed. 11::56 SVG to OM angiography performed. 11:28:03 Catheter removed. 11:28:21 GUIDE 6FR AL 2.0 catheter (RZ2OE07) opened to sterile field. 11:28:26 6 Fr AL 2 guide catheter was inserted over the wire 11:29:59 GUIDE REMOVED- UNABLE TO CANNULATE RCA 11:30:20 GUIDE 6FR AL 1.0 catheter (BS1FS00) opened to sterile field. 11:30:38 6 Fr AL 1 guide catheter was inserted over the wire 11:33:30 GUIDE REMOVED- UNABLE TO CANNULATE RCA 11:34:40 GUIDE 6FR AR 1.0 catheter (JK2GG57) opened to sterile field. 11:35:05 6 Fr AR 1 guide catheter was inserted over the wire 11:35:15 CHOICE PT Extra Support J 300cm guide wire ([id number]) opened to sterile field. 11:35:16 INFLATOR Merit BasixCompak (GV8929) opened to sterile field. 11:36:11 CHOICE ES 300 wire advanced. 11:36:13 Wire advanced across lesion. 11:37:36 Versed 1 mg I.V. was administered by Chi Mcclain RN; for sedation; 11:38:12 CHOICE ES WIRE USED TO HELP CANNUALTE AR 1 GUIDE TO RCA 11:38:13 RCA angiography performed. 11:38:25 Wire removed. 11:38:26 Guide catheter removed. 11:38:34 EXOSEAL 6Fr (EX600) opened to sterile field. 11:39:29 Sheath removed intact; hemostasis achieved with Exoseal to the Right Femoral artery. 11:39:33 Procedure ended.(Physican Out) 11:39:37 Fluoroscopy time 05.70 minutes. 11:39:44 Flurop Dose total: 965 11:39:44 Fluoroscopy dose: 965 mGy 11:39:48 Contrast amount:Isovue 300 140ml. 11:40:15 Sharps counted by scrub and verified by R.N. 11:40:19 Post-op/insertion site Right Femoral artery dressed using a 4 x 4 and Tegaderm. 11:40:23 Post procedure: right dorsailis pedis pulse 2+ Normal; easily identifiable; not easily obliterated. 11:40:25 Post-procedure physical assessment completed. ASA score P 2 - A patient with mild systemic disease as per Dylan Dasilva MD. 11:40:28 Post procedure rhythm: unchanged. 11:40:32 Estimated blood loss: 5 ml 11:40:34 Post procedure instruction explained to patient.Patient verbalizes understanding. 11:40:35 Patient needs reinforcement of post procedure teaching. 11:42:22 Procedure type changed to Cath procedure, Diagnostic procedure, LHC, LHC w/Coronaries w/Grafts, Sedation Charges, Moderate Sedation up to 15 minutes 11:44:57 Procedure and supply charges have been captured, reviewed, submitted and are correct. 11:45:02 Procedure Complication : No complications 11:45:04 Vital chart was stopped 11:45:04 See physician's report for complete and final results. 11:45:06 Report given to Pre/Post Procedure Room. 11:45:09 Patient transfered to Pre/Post Procedure Room with Bed. 11:45:14 Procedure ended. 11:45:14 Full Disclosure recording stopped 11:45:18 End room use (Document Last) Device Usage Item Name Manufacture Quantity Catalog Number Hospital Part Current Mini mal Lot# / Charge Number Stock Stock Serial# Code ACIST Acist 1 90408 148898 221188 550962 20 Syringe Medical (90448) Systems Inc Bag Decanter Microtek 1 687199 64007 487517 5 () Medical Inc. ACIST Hand Acist 1 71490 860372 669191 267934 5 Control Medical (26717) Systems Inc ACIST Acist 1 75515 067324 156196 411328 5 Manifold Medical (91617) Systems Inc Tegaderm 4 x 3M 1 1626W 785536 471323 761623 5 4 (1626W) Medline Cath Cardinal 1 [id number] 273366 96213 122240 5 [facility] ([id number]) DIAGNOSTIC [facility] Ananda 1 352350 491036 579942 527112 30 WIRE .035 260cm J wire (120125) PERCUTANEOUS [facility] 1 R48280 766732 698907 5 ENTRY 19GA needle DIAGNOSTIC Cardinal 1 VV4898 476843 43409 156010 30 Multipack ZANK.mobi 5Fr catheter set (CN5530) SHEATH 6FR Terumo 1 XYJ436 232970 275781 935495 40 [place] (XAM204) MULTIPACK Cardinal 1 154890 5 Pigtail 5 Fr Health catheter MULTIPACK JL Cardinal 1 166576 5 4.0 5Fr Health catheter MULTIPACK Cardinal 1 077602 5 3DRC 5Fr Health catheter GUIDE 6FR AL Medtronic 1 [id number] 608102 67066 654142 1 2.0 catheter (YH6VZ21) GUIDE 6FR AL Medtronic 1 [id number] 585858 30868 922235 1 1.0 catheter (SU8DB59) GUIDE 6FR AR Medtronic 1 YP0AG60 466275 99349 345980 1 1.0 catheter (XM2CI81) CHOICE PT [place] 1 [id number] 266861 157416 218887 5 Extra Scientific Support J 300cm guide wire ([id number]) INFLATOR Merit 1 TA4259 609753 445925 768598 15 [facility] (XJ4942[facility] EXOSEAL 6Fr Cardinal 1 EX600 694851 043700 939695 10 (EX600) Health Signature Audit [place] Stage Time Signature Unsigned Intra-Procedure 02/03/2018 Bushra Rolle 11:45:35 AM RT(R) Signatures Monitor : Bushra Rolle Signature : RT Date : Time : [facility] [address] [place] [address]
[2018-02-03 10:07] LABS: BASOPHILS 0.2 % (0-2); EOSINOPHILS 1.5 % (0-7); HEMATOCRIT 43.1 % (42.0-54.0); HEMOGLOBIN 14.5 g/dL (13.5-17.5); IMMATURE GRANULOCYTES 0.2 % (0-5); LYMPHOCYTES 18.3 % (15-50); MCH 30.9 pg (26.0-34.0); MCHC 33.6 g/dL (31.0-37.0); MCV 91.9 fL (80.0-100.0); MEAN PLATELET VOLUME 9.6 fL (7.4-10.4); NEUTROPHILS 71.8 % (40-80); PLATELET COUNT 192 10x3/uL (130-400); RBC 4.69 10x6/uL (4.20-6.10); RDW 13.2 % (11.5-14.5); WBC 6.5 10x3/uL (4.8-10.8)
[2018-02-03 10:16] LABS: ALBUMIN 3.6 g/dL (3.4-5.0); ALKALINE PHOSPHATASE 133 U/L (46-116); ALT (SGPT) 23 U/L (10-68); BILIRUBIN - TOTAL 0.75 mg/dL (0.2-1.3); CALC OSMOLALITY 286 mosm/kg (275-300); CALCIUM 8.6 mg/dL (8.5-10.1); CARBON DIOXIDE 25.6 mmol/L (21.0-32.0); CHLORIDE - SERUM 108 mmol/L (98-107); CREATININE - SERUM 1.2 mg/dL (0.6-1.3); GLUCOSE 108 mg/dL (74-106); POTASSIUM - SERUM 4.2 mmol/L (3.5-5.1); PROTEIN - SERUM 7.1 g/dL (6.4-8.2); SODIUM 142 mmol/L (136-145); UREA NITROGEN 20 mg/dL (7-18); eGFR NON AFRICAN AMERICAN 64 mL/min (90-120)
[2018-02-03 10:39] LABS: CHOL - HDL RATIO 3.2 ratio (2.3-4.9); CHOLESTEROL, TOTAL 129 mg/dL (0-200); CKMB 0.9 U/L (0.0-3.6); CREATINE KINASE 60 UL (21-232); HDL CHOLESTEROL 41 mg/dL (32-96); LDL CHOLESTEROL 81 mg/dL (0-100); TRIGLYCERIDE 39 mg/dL (30-200)
[2018-02-03 10:40] LABS: TROPONIN-I < 0.017 ng/mL (0.000-0.060)
== END 2018-02-03 14:14 | disposition home or self-care (01) ==
LOC: D.ER 09:07 → D.CATH 09:07 → EDSTATUS 13:09 → D.CATH 14:14
PROVIDERS: Emergency Medicine
DX: I25.110 Atherosclerotic heart disease of native coronary artery with unstable angina pectoris (principal); Z95.1 Presence of aortocoronary bypass graft; Z95.5 Presence of coronary angioplasty implant and graft; I10 Essential (primary) hypertension; E78.5 Hyperlipidemia, unspecified; Z01.812 Encounter for preprocedural laboratory examination

== ENCOUNTER → 2018-02-24 19:13 | Outpatient (CLI) | payer MEDICARE, OTHER ==
[2017-11-02 07:19] VITALS: BMI 31.6
== END | disposition home or self-care (01) ==
LOC: D.LABREF 19:13
DX: N39.0 Urinary tract infection, site not specified (principal)

== ENCOUNTER → 2018-05-02 10:27 | Outpatient (CLI) | payer MEDICARE, OTHER ==
[2017-11-02 07:19] VITALS: BMI 31.6
== END | disposition home or self-care (01) ==
LOC: D.LAB 10:27
DX: C61 Malignant neoplasm of prostate (principal); Z12.5 Encounter for screening for malignant neoplasm of prostate

== ENCOUNTER → 2018-05-31 13:45 | Outpatient (CLI) | payer MEDICARE, OTHER ==
[2017-11-02 07:19] VITALS: BMI 31.6
== END | disposition home or self-care (01) ==
LOC: D.LAB 13:45
DX: R97.20 Elevated prostate specific antigen [PSA] (principal); Z12.5 Encounter for screening for malignant neoplasm of prostate; Z48.816 Encounter for surgical aftercare following surgery on the genitourinary system

== ENCOUNTER 2019-01-11 10:36 | Observation (INO) | payer MEDICARE ==
[~2019-01-11] VITALS: Ht 188 cm; Wt 118.2 kg
--- NOTE | ~2019-01-11 | HEMODYNAMI ---
PATIENT:NAYA BLANTON MEDICAL RECORD: [id number] : [birth year] LOCATION[place] [place] [id number] ADMISSION DATE: 01/11/19 Generatedon:01/11/201916:01 Patient name: NAYA BLANTON Patient #: [id number] : 1950 Date of study: 01/11/2019 Page: Of Hemodynamic Procedure Report Patient Data Patient Demographics Procedure consent was obtained First Name: NAYA Gender: Male Last Name: HARVINDER : 1950 [facility] Initial: ANABELL Age: 68 year(s) Patient #: [id number] Race: SSN: [id number] Additional ID: [id number] Contact details Address: [place] [place] [address] State: [place] City: [place] Zip code: [address] Past Medical History Allergies Allergen Reaction Date Comments Reported Other allergy 07/05/2015 Acetametaphin, Diclofenac, Sodium, Hydrocodone Other allergy 02/03/2018 VICITAN, VOLTARIAN Other allergy 01/11/2019 vicoden, veltram Admission Admission Data Admission Date: 01/11/2019 Admission Time: 12:50 Room #: [facility] Height (in.): 73.62 BSA: 2.42 (m2) Height (cm.): 187 BMI: 33.74 (kg/m2) Weight (lbs.): 260.15 Weight (kg.): 118 Lab Results Lab Result Date: 01/11/2019 Lab Result Time: 11:20 Biochemistry Name Units Result Min Max BUN mg/dl 21 --(----)-* 7 18 Creatinine mg/dl 1 --(--*-)-- 0.6 1.3 CBC Name Units Result Min Max Hematocrit % 42.3 --(*---)-- 42 54 Hemoglobin g/dl 14.3 --(*---)-- 13.5 17.5 Procedure Procedure Types Cath Procedure Diagnostic Procedure [facility] w/Coronaries w/Grafts PCI Procedure Coronary Stent Coronary Stent Initial Procedure Description Procedure Date Procedure Date: 01/11/2019 Procedure Start Time: 15:39 Procedure End Time: 15:59 Procedure Staff Name Function Dylan Dasilva MD Performing Physician Roosevelt Murphy RT Monitor Jennifer Tovar RN Nurse Justina Agarwal RT Scrub Procedure Data Cath Procedure Fluoroscopy Diagnostic fluoroscopy Total fluoroscopy Time: 3.5 time: 3.5 min min Diagnostic fluoroscopy Total fluoroscopy dose: dose: 577.47 mGy 577.47 mGy Contrast Material Contrast Material Type Amount (ml) Isovue 300 79 Entry Location Entry Primary Successful Side Size Upsize Upsize Entry Closure Succes sful Closure Location (Fr) 1 (Fr) 2 (Fr) Remarks Device Remarks Femoral Right 5 Fr 6 Fr Exoseal artery Short Estimated blood loss: 10 ml Diagnostic catheters Device Type Used For End Catheter Placement MULTIPACK Pigtail 5 Fr Procedure catheter MULTIPACK JL 4.0 5Fr Procedure catheter DIAGNOSTIC JL 5 5Fr Procedure catheter ([id number]) MULTIPACK 3DRC 5Fr Procedure catheter DIAGNOSTIC AR2 MOD 5 Fr Procedure catheter ([id number]) Procedure Complications No complications Procedure Medications Medication Administration Route Dosage 0.9% NaCl I.V. 100 ml/hr Oxygen etCO2 Nasal cannula 2 l/min Lidocaine 2% added to field 20 Heparin Flush Bag added to field 2 bags (1000units/500ml NS) Versed I.V. 2 mg Fentanyl I.V. 50 mcg Versed I.V. 2 mg Fentanyl I.V. 50 mcg Heparin Bolus I.V. 4000 units Hemodynamics Rest BSA: 2.42 (m2) HGB: 14.3 (g/dl) O2 Consumption: Estimated: 277.33 (ml/min) O2 Co nsumption indexed: Estimated:114.6 (ml/min/m) Heart Rate: 67 (bpm) Snapshots Pre Cath Intra NCS Post Cath Vital Signs Time Heart Resp SPO2 etCO2 NIBP (mmHg) Rhythm Pain Sedation Rate (ipm) (%) (mmHg) Status Level (bpm) 15:27:51 75 19 100 38.2 146/75(109) NSR 0 (11) 10(A) , No pain 15:33:03 67 13 98 36.7 123/73(103) NSR 0 (11) 10(A) , No pain 15:37:23 71 13 98 33.7 115/69(100) NSR 0 (11) 10(A) , No pain 15:41:41 67 13 98 39.7 122/67(97) NSR 0 (11) 10(A) , No pain 15:45:57 71 12 98 39.6 126/71(110) NSR 0 (11) 9(A) , No pain 15:50:19 72 13 98 38.9 121/59(88) NSR 0 (11) 10(A) , No pain 15:54:39 74 16 99 38.9 125/71(99) NSR 0 (11) 10(A) , No pain 15:58:57 69 27 99 38.1 125/70(102) NSR 0 (11) 10(A) , No pain Medications Time Medication Route Dose Verified Delivered Reason Notes Effectiveness by by 15:25:44 0.9% NaCl I.V. 100 Dylan Jennifer used for ml/hr Vidya Tovar preparation room manager 15:25:50 Oxygen etCO2 2 Dylan Jennifer used for Nasal l/min Vidya Tovar procedure cannula RN 15:25:57 Lidocaine 2% added 20ml Dylan Dylan used for to vial Vidya Dasilva MD procedure field 15:26:01 Heparin Flush added 2 Dylan Dylan used for Bag to bags Vidya Dasilva MD procedure (1000units/500ml field NS) 15:37:32 Versed I.V. 2 mg Dylan Jennifer for sedation Vidya Tovar RN 15:37:41 Fentanyl I.V. 50 Dylan Jennifer for sedation mcg Vidya Tovar RN 15:43:45 Versed I.V. 2 mg Dylan Jennifer for sedation Vidya Tovar RN 15:43:50 Fentanyl I.V. 50 Dylan Jennifer for sedation mcg Vidya Tovar RN 15:48:57 Heparin Bolus I.V. 4000 Dylan Jennifer for verif ied units Vidya Tovar anticoagulation with Dr. LISA Dasilva Procedure Log Time Note 15:13:51 Patient Height : 73.62 inches 15:14:02 Patient Weight : 260.15 lbs 15:14:36 Diagnostic Cath status Elective 15:14:39 Jennifer Tovar RN sent for patient. Start room use. 15:14:41 Time tracking: Regular hours (M-F 7:00 - 5:00) 15:14:50 Plan of Care:Hemodynamics will remain stable., Cardiac rhythm will remain stable., Comfort level will be maintained., Respiratory function will remain adequate., Patient/ family verbilizes understanding of procedure., Procedure tolerated without complication., Recovers from procedure without complications.. 15:14:58 Patient received from ED to CCL 1 Alert and oriented. Tansferred to table in Supine position. 15:14:59 Warm blankets applied, and lenore hugger turned on for patient comfort. 15:15:00 Correct patient and procedure confirmed by team. 15:25:36 Vital chart was started 15:25:44 0.9% NaCl 100 ml/hr I.V. was administered by Jennifer Tovar RN; used for procedure; 15:25:50 Oxygen 2 l/min etCO2 Nasal cannula was administered by Jennifer Tovar RN; used for procedure; 15:25:57 Lidocaine 2% 20ml vial added to field was administered by Dylan Dasilva MD; used for procedure; 15:26:01 Heparin Flush Bag (1000units/500ml NS) 2 bags added to field was administered by Dylan Dasilva MD; used for procedure; 15:29:25 Signed procedure consent form obtained from spouse. 15:29:26 ECG and BP/O2 sat monitors applied to patient. 15:29:36 Baseline sample Acquired. 15:29:38 Rhythm: sinus rhythm 15:29:40 Full Disclosure recording started 15:29:46 H&P Date Dictated: 01/11/2019 Within 30 days and on chart.. 15:29:47 Pre-procedure instructions explained to patient. 15:29:48 Pre-op teaching completed and patient verbalized understanding. 15:29:49 Family in waiting room. 15:29:51 Patient NPO since Breakfast. 15:30:06 Patient allergic to Other allergyvicoden, veltram 15:30:07 Is the patient allergic to Iodine/contrast media? No. 15:30:11 Is patient on blood thinner?Yes 15:30:13 ACC The patient was administered the following blood thiners within the last 24 hours: ACCPlavix 15:32:20 Patient diabetic? No. 15:32:23 Previous problem with sedation/anesthesia? No ? 15:32:24 Snore? Yes 15:32:28 Sleep apnea? Yes 15:32:29 Deviated septum? No 15:32:30 Opens mouth fully? Yes 15:32:31 Sticks out tongue? Yes 15:32:32 Airway obstruction? No ? 15:32:34 Dentures? No ? 15:32:36 Pre procedure: right dorsailis pedis pulse 1+ Palpable, but thready & weak; easily obliterated 15:32:38 Patient pain scale 0/10 ?. 15:32:42 IV patent on arrival in left forearm with 0.9% NaCl at [facility]. 15:33:43 Lab Result : Creatinine 1 mg/dl 15:33:43 Lab Result : BUN 21 mg/dl 15:33:43 Lab Result : Hemoglobin 14.3 g/dl 15:33:43 Lab Result : Hematocrit 42.3 % 15:33:45 Lab results completed and on chart. 15:33:47 Right groin area was prepped with chlora-prep and draped in sterile fashion 15:33:48 Alarms reviewed by R. N. 15:33:48 Sharps counted by scrub and verified by R.N. 15:33:51 Physician paged 15:34:00 Use device set Femoral Dx 15:34:01 ACIST Syringe (11419) opened to sterile field. 15:34:01 Bag Decanter (2002S) opened to sterile field. 15:34:02 Medline Cath Pack ([id number]) opened to sterile field. 15:34:04 ACIST Hand Control (76968) opened to sterile field. 15:34:04 ACIST Manifold (09543) opened to sterile field. 15:34:05 Tegaderm 4 x 4 (1626W) opened to sterile field. 15:34:06 SHEATH 5FR Max (SOL056) opened to sterile field. 15:34:07 DIAGNOSTIC WIRE .035 260cm J wire (801930) opened to sterile field. 15:34:07 DIAGNOSTIC Multipack 5Fr catheter set (RH6579) opened to sterile field. 15:35:28 Zero performed for pressure channel P1 15:36:38 Physician arrived 15:36:38 --------ALL STOP TIME OUT------ 15:36:39 Final Timeout: patient, procedure, and site verified with staff and physician. All members of the team are in agreement. 15:36:48 Right groin site verified by team. 15:36:52 Maximum allowable Isovue 300 dose 300ml. Physician notified. (300ml for normal creatinines. For patients with creatinine of 1.7 or higher multiply weight(kg) x 5 divided by creatinine.) 15:36:59 Fire Safety Assessment: A--An alcohol-based skin anteseptic being used preoperatively., C--Open oxygen or nitrous oxide is being used., D--An ESU, laser, or fiber-optic light is being used. 15:37:02 Physical assessment completed. ASA score P 2 - A patient with mild systemic disease as per Dylan Dasilva MD. 15:37:05 Sedation plan: IV Moderate Sedation Medication:Versed, Fentanyl 15:37:32 Versed 2 mg I.V. was administered by Jennifer Tovar RN; for sedation; 15:37:41 Fentanyl 50 mcg I.V. was administered by Jennifer Tovar RN; for sedation; 15:39:26 Procedure started. 15:39:29 Local anesthetic to right femoral artery with Lidocaine 2% by Dylan Dasilva MD.INITIAL ACCESS ONLY 15:39:35 A 5 Fr sheath was inserted into the Right Femoral artery 15:40:36 A MULTIPACK Pigtail 5 Fr catheter was advanced over the wire and used for Procedure. 15:40:58 LV gram done using CHAMBERS 15:41:00 Injector settings: Ml/sec: 10, Volume: 20, 15:41:18 EF : 60 % 15:41:23 Catheter exchanged over wire. 15:41:27 A MULTIPACK JL 4.0 5Fr catheter was advanced over the wire and used for Procedure. 15:42:06 LCA angiography performed. 15:42:36 Catheter removed. unable to cannulate vessel. 15:42:44 A DIAGNOSTIC JL 5 5Fr catheter ([id number]) was advanced over the wire and used for Procedure. 15:43:45 Versed 2 mg I.V. was administered by Jennifer Tovar RN; for sedation; 15:43:50 Fentanyl 50 mcg I.V. was administered by Jennifer Tovar RN; for sedation; 15:44:08 LCA angiography performed. 15:44:19 A MULTIPACK 3DRC 5Fr catheter was advanced over the wire and used for Procedure. 15:44:24 REYNOSO to LAD angiography performed. 15:44:42 Catheter exchanged over wire. 15:44:46 A DIAGNOSTIC AR2 MOD 5 Fr catheter ([id number]) was advanced over the wire and used for Procedure. 15:45:26 SVG to Circ angiography performed. 15:46:23 RCA angiography performed. 15:46:31 Catheter removed. 15:46:47 CHOICE PT Extra Support 182cm wire ([id number]) opened to sterile field. 15:46:47 INFLATOR Merit BasixCompak (XF6895) opened to sterile field. 15:46:48 SHEATH 6FR Max (AYQ771) opened to sterile field. 15:46:53 GUIDE 6FR AR 2.0 catheter ([id number]) opened to sterile field. 15:47:00 Sheath upsized to a 6 Fr Short. 15:47:05 6 Fr AR 2 guide catheter was inserted over the wire 15:48:12 CHOICE PT ES wire advanced. 15:48:14 Wire advanced across lesion. 15:48:57 Heparin Bolus 4000 units I.V. was administered by Jennifer Tovar RN; for anticoagulation; verified with Dr. Dsailva 15:50:01 Place stent Inflation Number: 1 A MARJ RX 3.5 x 18 stent ([id number]) was prepped and advanced across the Mid RCA. The stent was deployed at 21 TANIYA for 0:10 (min:sec). 15:50:13 Stent catheter was removed intact over wire. 15:50:14 Wire removed. 15:50:15 Guide catheter removed. 15:50:19 EXOSEAL 6Fr (EX600) opened to sterile field. 15:50:31 Sheath removed intact; hemostasis achieved with Exoseal to the Right Femoral artery. 15:50:34 Procedure ended.(Physican Out) 15:56:07 Fluoroscopy time 03.50 minutes. 15:56:17 Flurop Dose total: 577.47 15:56:17 Fluoroscopy dose: 577.47 mGy 15:56:22 Contrast amount:Isovue 300 79ml. 15:56:23 Sharps counted by scrub and verified by R.N. 15:56:24 Insertion/operative site no bleeding no hematoma. 15:56:26 Post-op/insertion site Right Femoral artery dressed using a 4 x 4 and Tegaderm. 15:56:31 Post right femoral artery:stable, soft, clean and dry 15:56:33 Post Procedure Pulses reassessed and unchanged 15:56:36 Post-procedure physical assessment completed. ASA score P 2 - A patient with mild systemic disease as per Dylan Dasilva MD. 15:56:39 Post procedure rhythm: unchanged. 15:56:42 Estimated blood loss: 10 ml 15:56:43 Post procedure instruction explained to patient.Patient verbalizes understanding. 15:56:45 Patient needs reinforcement of post procedure teaching. 15:57:14 Procedure type changed to Cath procedure, Diagnostic procedure, LHC, LHC w/Coronaries w/Grafts, PCI procedure, Coronary Stent, Coronary Stent Initial 15:59:29 End room use (Document Last) 15:59:38 Procedure and supply charges have been captured, reviewed, submitted and are correct. 15:59:41 Procedure Complication : No complications 15:59:43 Vital chart was stopped 15:59:43 See physician's report for complete and final results. 15:59:45 Report given to Pre/Post Procedure Room. 15:59:47 Patient transfered to Pre/Post Procedure Room with Stretcher. 15:59:49 Procedure ended. 15:59:49 Full Disclosure recording stopped Intervention Summary Intervention Notes Time ActionType Lesion and Equipment Used Action# Pressure Duration Attributes 15:50:01 Place stent Mid RCA MARJ RX 3.5 x 1 21 00:10 18 stent ([id number]) Device Usage Item Name Manufacture Quantity Catalog Number Hospital Part Current M inimal Lot# / Charge Number Stock Stock Serial# Code ACIST Syringe Acist 1 14939 133600 802394 751684 2 0 (03416) Medical Systems Inc Bag Decanter Microtek 1 2001S 415601 39968 565886 5 () Medical Inc. Medline Cath Medline 1 [id number] 043780 43629 117637 5 Pack ([id number]) ACIST Hand Acist 1 56072 701053 611337 149470 5 Control Medical (43752) Systems Inc ACIST Manifold Acist 1 41461 401061 410572 135339 5 (88236) Medical Systems Inc Tegaderm 4 x 4 3M 1 1626W 308240 654936 062221 5 (1626W) SHEATH 5FR Terumo 1 OOH030 496589 168075 117253 5 Max (GAV962) DIAGNOSTIC St Ananda 1 300661 146539 254159 853831 3 0 WIRE .035 260cm J wire (040459) DIAGNOSTIC Cardinal 1 II5598 707600 25517 360857 3 0 Multipack 5Fr Health catheter set (TQ6534) MULTIPACK Cardinal 1 877936 5 Pigtail 5 Fr Health catheter MULTIPACK JL Cardinal 1 292927 5 4.0 5Fr Health catheter DIAGNOSTIC JL Cardinal 1 045049H 305651 108745 089518 5 5 5Fr catheter Health (760593Z) MULTIPACK 3DRC Cardinal 1 894095 5 5Fr catheter Health DIAGNOSTIC AR2 Cardinal 1 [id number] 073107 290726 339482 2 0 MOD 5 Fr Health catheter (235799B) CHOICE PT [place] 1 [id number] 445647 964348 273676 5 Extra Support Scientific 182cm wire ([id number]) INFLATOR Merit Merit 1 SH5117 203722 439573 994403 1 5 [facility] Center[facility] Medical (XX2653) SHEATH 6FR Terumo 1 NUU591 123318 669566 212142 4 0 Max (FNR506) GUIDE 6FR AR Medtronic 1 SI7VW07 435761 76045 598992 1 2.0 catheter (CB3ZL94) MARJ RX 3.5 x Medtronic 1 [id number] 551729 1058313 800712 5 [id number] 18 stent ([id number]) EXOSEAL 6Fr Cardinal 1 EX600 448835 368352 037321 1 0 (EX600) Health Signature Audit [place] Stage Time Signature Unsigned Intra-Procedure 01/11/2019 Roosevelt Murphy 4:01:10 PM RT(R) Signatures Monitor : Roosevelt Murphy RT Signature : Date : Time : [facility] [address] [place] [address]
[2019-01-11 10:50] VITALS: Ht 188 cm; Wt 118.2 kg
[2019-01-11] MEDS ORDERED: COZAAR100 MG PO (10:53)
[2019-01-11 11:26] LABS: BASOPHILS 0.4 % (0-2); EOSINOPHILS 2.5 % (0-7); HEMATOCRIT 42.3 % (42.0-54.0); HEMOGLOBIN 14.3 g/dL (13.5-17.5); IMMATURE GRANULOCYTES 0.2 % (0-5); LYMPHOCYTES 32.8 % (15-50); MCHC 33.8 g/dL (31.0-37.0); MCV 91.6 fL (80.0-100.0); MEAN PLATELET VOLUME 9.9 fL (7.4-10.4); MONOCYTES 11.6 % (2-11); NEUTROPHILS 52.5 % (40-80); RBC 4.62 10x6/uL (4.20-6.10); WBC 5.3 10x3/uL (4.8-10.8)
[2019-01-11 11:34] LABS: PLATELET COUNT 130 10x3/uL (130-400)
[2019-01-11 11:43] LABS: ALBUMIN 3.5 g/dL (3.4-5.0); ALKALINE PHOSPHATASE 127 U/L (46-116); ALT (SGPT) 21 U/L (10-68); BILIRUBIN - TOTAL 0.43 mg/dL (0.2-1.3); CALC OSMOLALITY 285 mosm/kg (275-300); CALCIUM 8.4 mg/dL (8.5-10.1); CARBON DIOXIDE 24.3 mmol/L (21.0-32.0); CHLORIDE - SERUM 106 mmol/L (98-107); GLUCOSE 90 mg/dL (74-106); POTASSIUM - SERUM 4.3 mmol/L (3.5-5.1); SODIUM 142 mmol/L (136-145); UREA NITROGEN 21 mg/dL (7-18); eGFR NON AFRICAN AMERICAN 78 mL/min (90-120)
[2019-01-11 11:54] LABS: CKMB 0.6 U/L (0.0-3.6); CREATINE KINASE 68 UL (21-232)
[2019-01-11 11:55] LABS: TROPONIN-I < 0.017 ng/mL (0.000-0.060)
[2019-01-11 15:14] VITALS: BP 123/69
--- NOTE | 2019-01-11 16:25 | NUR ---
2L NC, NO RESP DISTRESS. RIGHT GROIN 6F EXOSEAL CDI, NO BLEEDING OR HEMATOMA NOTED. NO C/O PAIN OR NAUSEA. VSS. FAMILY AT BEDSIDE, CALL LIGHT WITHIN REACH.
--- NOTE | 2019-01-11 16:55 | NUR ---
RIGHT GROIN 6F EXOSEAL CDI, NO BLEEDING OR HEMATOMA NOTED. NO C/O PAIN OR NAUSEA. 2L NC WITH NO RESP DISTRESS. VSS. WILL CONTINUE TO MONITOR.
--- NOTE | 2019-01-11 17:10 | NUR ---
RESTING QUIETLY WITH EYES CLOSED. RIGHT GROIN 6F EXOSEAL CDI, NO BLEEDING OR HEMATOMA NOTED. DENIES ANY NEEDS AT THIS TIME. AT BEDSIDE, CALL LIGHT WITHIN REACH.
--- NOTE | 2019-01-11 17:40 | NUR ---
CONTINUES TO REST COMFORTABLY WITH NO C/O. RIGHT GROIN 6F EXOSEAL CDI, NO BLEEDING OR HEMATOMA NOTED. VSS. WILL CONTINUE TO MONITOR.
--- NOTE | 2019-01-11 18:10 | NUR ---
RIGHT GROIN 6F EXOSEAL CDI, NO BLEEDING OR HEMATOMA NOTED. 2L NC WITH NO RESP DISTRESS. NO C/O OR NEEDS VOICED. VSS. WILL CONTINUE TO MONITOR.
--- NOTE | 2019-01-11 18:32 | NUR ---
HOB ELEVATED 30 DEGREES. RIGHT GROIN 6F EXOSEAL CDI, NO BLEEDING OR HEMATOMA NOTED. SIPPING ON DRINK WITH NO C/O NAUSEA. VSS. WILL CONTINUE TO MONITOR CLOSELY.
--- NOTE | 2019-01-11 19:20 | NUR ---
LEFT PIV D/C'D WITH CATHETER INTACT, BAND AID TO SITE. RIGHT GROIN 6F EXOSEAL CDI, NO BLEEDING OR HEMATOMA NOTED. UP TO BEDSIDE TO GET DRESSED. AMBULATED TO RESTROOM.
--- NOTE | 2019-01-11 19:30 | NUR ---
DISCHARGE INSTRUCTIONS GIVEN, VERBALIZED UNDERSTANDING.
--- NOTE | 2019-01-11 19:40 | NUR ---
TAKEN OUT VIA WHEELCHAIR BY CATH EMPLOYEE RELATIONS ADVISOR. LEFT FACILITY WITH FAMILY AND ALL PERSONAL BELONGINGS.
--- NOTE | 2019-01-15 10:55 | OP ---
PATIENT NAME: NAYA BLANTON MEDICAL RECORD: [id number] :46 LOCATION:[facility] [place]- ADMISSION DATE:01/11/19 SURGEON: SONI CHAVEZ MD DATE OF OPERATION: 01/11/2019 PROCEDURES: 1. PTCA stent RCA. 2. Left heart catheterization. 3. Selective coronary angiography. 4. Left ventriculogram. INDICATION: Unstable angina and coronary artery disease. PROCEDURE PERFORMED: After informed consent was obtained and after detailed description of risks, benefits as well as alternative therapies, the patient elected to proceed with angiogram and angioplasty. The right femoral area was prepped and draped in normal sterile fashion. Right femoral artery was cannulated via modified Seldinger technique with placement of 6-Nigerian sheath. All catheters exchanged through this sheath. FINDINGS: Left ventriculogram was performed in standard 30-degree CHAMBERS view, reveals good cardiac wall motion throughout all segments. Overall ejection fraction estimated at 60%. SELECTIVE CORONARY ANGIOGRAPHY: 1. Left main is with no significant angiographic disease. 2. Left anterior descending is closed. 3. Left circumflex has moderate irregularities, but no flow-limiting stenosis. 4. Right coronary is with previously placed stents, there was 70% in-stent restenosis. 5. REYNOSO to the LAD is widely patent. Distal LAD is widely patent. 6. Vein graft to the LAD diagonal is widely patent. PTCA STENT OF THE RCA: The stent used was a 3.5 x 18 mm Bhupinder taken to 21 atmospheres. Result was 0% residual stenosis. OVERALL IMPRESSION: Successful percutaneous transluminal angioplasty stent of the left anterior descending going from 70% in-stent restenosis to 0% residual. TRANSINT:[id number] Voice Confirmation ID: [id number] DOCUMENT ID: [id number] SONI CHAVEZ MD at 1055 CC: [id number] DICTATION DATE: 01/11/19 1555 ELECTRICAL TESTER: 01/11/19 2344 DIS IN 01/11/19 [place] [id number]
--- NOTE | 2019-01-15 10:55 | HP ---
PATIENT: NAYA BLANTON MEDICAL RECORD: [id number] ACCOUNT: [id number] LOCATION[place] [place] : 46 ADMISSION DATE: 01/11/19 PCP: SUJEY OQUENDO DO HISTORY AND PHYSICAL EXAMINATION DIAGNOSES: 1. Angina, unstable. 2. Coronary artery disease. 3. Hypertension. 4. Hyperlipidemia. 5. Status post coronary artery bypass graft surgery. HISTORY OF PRESENT ILLNESS: This is a gentleman who presents with increasing anginal symptomatology, been there since Tuesday, it has progressed in an unstable fashion. He does have coronary artery bypass graft surgery 12 years ago. Last cardiac intervention was over a year ago. PHYSICAL EXAMINATION: GENERAL APPEARANCE: Well-nourished, well-developed, appears stated age. Level of distress, comfortable. PSYCHIATRIC: Mental status, alert, normal affect. Orientation, oriented to time, place and person. EYES: Lids and conjunctiva, noninjected. No discharge, no pallor. ENT: Lips, teeth, gums, normal dentition. Oropharynx, no cyanosis, no pallor. NECK: Carotid arteries, bilateral normal upstroke, no bruits, no thrills. JUGULAR VEINS: No jugular venous pressure or distention. CERVICAL LYMPH NODES: Nontender, nonenlarged. THYROID: Not enlarged. Nontender. No nodules. LUNGS: Respiratory effort, unlabored. CHEST: Normal curvature. No thoracic deformity. No chest wall tenderness. Percussion, resonant. Auscultation, clear. No wheezes, no rales, no rhonchi. CARDIOVASCULAR: Precordial exam, nondisplaced. No heaves or pericardial thrills. Rate and rhythm, regular. Heart sounds, normal S1, normal S2. No S3, no gallop, no rub. Systolic murmur, not heard. Diastolic murmur, not heard. EXTREMITIES: No cyanosis, no edema. Peripheral pulses, full and equal in all extremities, except as noted. No bruits appreciated. ABDOMEN: Soft, nondistended. Normal aorta. No bruit. Nontender. No masses. Liver, nontender, no hepatomegaly. Spleen, nontender, no splenomegaly. MUSCULOSKELETAL: No joint tenderness. No joint swelling. No erythema. NEUROLOGICAL: Normal gait, normal strength, normal tone. SKIN: Warm and dry. OVERALL IMPRESSION: Unstable angina in an escalating fashion, most likely has recurrent hemodynamically significant coronary artery disease and/or graft failure. We will proceed with coronary angiography. Further care depends upon the findings of the angiography. TRANSINT:[id number] Voice Confirmation ID: [id number] DOCUMENT ID: [id number] HISTORY AND PHYSICAL [id number] NAYA BLANTON JEFFREY MD at 1055 CC: [id number] DICTATION DATE: 01/11/19 1144 CAR BODY MECHANIC: 01/11/19 1208 DIS IN 01/11/19 [facility] [address] [place] [address]
== END 2019-01-11 19:40 | disposition home or self-care (01) ==
LOC: D.ER 10:36 → D.EDHOLD 12:50 → OBSVTIME 12:51 → D.SDCHOLD 15:23
PROVIDERS: Family Medicine; ADMIT Internal Medicine Interventional Cardiology; ATTEND Internal Medicine Interventional Cardiology
DX: I25.110 Atherosclerotic heart disease of native coronary artery with unstable angina pectoris (principal); I10 Essential (primary) hypertension; E78.5 Hyperlipidemia, unspecified; T82.855A Stenosis of coronary artery stent, initial encounter; Y83.8 Other surgical procedures as the cause of abnormal reaction of the patient, or of later complication, without mention of misadventure at the time of the procedure
CPT/HCPCS: 93459; C9600

== ENCOUNTER 2019-03-25 10:47 | Emergency (ER) | payer MEDICARE ==
[~2019-03-25] VITALS: Ht 188 cm; Wt 117.3 kg
[~2019-03-25 10:47] MED LIST changes: +COZAAR100 MG PO
[2019-03-25 10:51] VITALS: Ht 188 cm; Wt 117.3 kg
[2019-03-25 11:05] LABS: BASOPHILS 0.3 % (0-2); EOSINOPHILS 2.2 % (0-7); HEMATOCRIT 43.5 % (42.0-54.0); IMMATURE GRANULOCYTES 0.2 % (0-5); LYMPHOCYTES 31.8 % (15-50); MCH 31.4 pg (26.0-34.0); MCHC 34.5 g/dL (31.0-37.0); MCV 91.2 fL (80.0-100.0); MEAN PLATELET VOLUME 9.6 fL (7.4-10.4); MONOCYTES 8.4 % (2-11); NEUTROPHILS 57.1 % (40-80); RBC 4.77 10x6/uL (4.20-6.10); RDW 12.8 % (11.5-14.5)
[2019-03-25 11:09] LABS: PLATELET COUNT 189 10x3/uL (130-400)
[2019-03-25 11:17] LABS: APTT 29.5 SECONDS (22.8-39.4); INR 1.04 (0.85-1.17); PROTIME 13.1 SECONDS (11.6-15.0)
[2019-03-25 11:21] LABS: ALBUMIN 3.7 g/dL (3.4-5.0); ALKALINE PHOSPHATASE 115 U/L (46-116); ALT (SGPT) 30 U/L (10-68); BILIRUBIN - TOTAL 0.54 mg/dL (0.2-1.3); CALC OSMOLALITY 288 mosm/kg (275-300); CALCIUM 8.7 mg/dL (8.5-10.1); CARBON DIOXIDE 25.7 mmol/L (21.0-32.0); CHLORIDE - SERUM 108 mmol/L (98-107); CREATININE - SERUM 1.1 mg/dL (0.6-1.3); GLUCOSE 123 mg/dL (74-106); POTASSIUM - SERUM 4.1 mmol/L (3.5-5.1); PROTEIN - SERUM 7.4 g/dL (6.4-8.2); SODIUM 143 mmol/L (136-145); UREA NITROGEN 20 mg/dL (7-18); eGFR NON AFRICAN AMERICAN 70 mL/min (90-120)
[2019-03-25 11:33] LABS: CKMB 0.5 U/L (0.0-3.6); CREATINE KINASE 97 UL (21-232); TROPONIN-I < 0.017 ng/mL (0.000-0.060)
[2019-03-25 13:04] VITALS: BP 126/69
== END 2019-03-25 13:00 | disposition home or self-care (01) ==
LOC: D.ER 10:47
PROVIDERS: Family Medicine
DX: R07.9 Chest pain, unspecified (principal); I25.10 Atherosclerotic heart disease of native coronary artery without angina pectoris; I10 Essential (primary) hypertension; E86.0 Dehydration

== ENCOUNTER 2019-08-06 12:53 | Outpatient (CLI) | payer MEDICARE ==
[~2019-08-06] VITALS: Ht 188 cm; Wt 118.2 kg
--- NOTE | ~2019-08-06 | HEMODYNAMI ---
PATIENT:NAYA BLANTON MEDICAL RECORD: [id number] : 46 LOCATION:D.CAT ADMISSION DATE: 08/06/19 Generatedon:08/06/201913:31 Patient name: NAYA BLANTON Patient #: [id number] : 1950 Date of study: 08/06/2019 Page: Of Hemodynamic Procedure Report Patient Data Patient Demographics Procedure consent was obtained First Name: NAYA Gender: Male Last Name: HARVINDER : 1950 [facility] Initial: ANABELL Age: 68 year(s) Patient #: [id number] Race: SSN: [id number] Additional ID: [id number] Contact details Address: [address] [address] State: [place] City: [place] Zip code: [address] Past Medical History Allergies Allergen Reaction Date Comments Reported Other allergy 07/05/2015 Acetametaphin, Diclofenac, Sodium, Hydrocodone Other allergy 02/03/2018 VICITAN, VOLTARIAN Other allergy 01/11/2019 vicoden, veltram Other allergy 08/06/2019 ACETMAINOPHEN, VOLTAREN, HYDROCODONE Admission Admission Data Admission Date: 08/06/2019 Admission Time: 12:53 Arrival Date: 08/06/2019 Arrival Time: 0:00 [facility] #: [id number] Height (in.): 74 BSA: 2.43 (m2) Height (cm.): 187.96 BMI: 33.4 (kg/m2) Weight (lbs.): 260.15 Weight (kg.): 118 Lab Results Lab Result Date: 08/06/2019 Lab Result Time: 0:00 Biochemistry Name Units Result Min Max BUN mg/dl 22 --(----)-* 7 18 Creatinine mg/dl 1.1 --(--*-)-- 0.6 1.3 eGFR ml/min 70.50829 *-(----)-- 90 120 NONAFRICAN CBC Name Units Result Min Max Hematocrit % 41.9 -*(----)-- 42 54 Hemoglobin g/dl 13.8 --(*---)-- 13.5 17.5 Procedure Procedure Types Cath Procedure Diagnostic Procedure [facility] w/Coronaries w/Grafts FFR/IVUS FFR Initial Sedation Charges Moderate Sedation up to 15 minutes PCI Procedure Coronary Stent Coronary Stent Initial Procedure Description Procedure Date Procedure Date: 08/06/2019 Procedure Start Time: 12:58 Procedure End Time: 13:27 Procedure Staff Name Function Dylan Dasilva MD Performing Physician Bushra Rolle RT Monitor Laura Blank RT Scrub Alejandrina Damon RN Nurse Procedure Data Cath Procedure Fluoroscopy Diagnostic fluoroscopy Total fluoroscopy Time: 8.9 time: 8.9 min min Diagnostic fluoroscopy Total fluoroscopy dose: dose: 1445 mGy 1445 mGy Contrast Material Contrast Material Type Amount (ml) Isovue 300 187 Entry Location Entry Primary Successful Side Size Upsize Upsize Entry Closure Succes sful Closure Location (Fr) 1 (Fr) 2 (Fr) Remarks Device Remarks Femoral Right 5 Fr 6 Fr Exoseal artery Short Estimated blood loss: 10 ml Diagnostic catheters Device Type Used For End Catheter Placement MULTIPACK Pigtail 5 Fr Procedure catheter DIAGNOSTIC JL 6 5Fr Procedure catheter ([id number]) MULTIPACK 3DRC 5Fr Procedure catheter DIAGNOSTIC AR1 MOD 5Fr Procedure catheter ([id number]) Procedure Complications No complications Procedure Medications Medication Administration Route Dosage Oxygen etCO2 Nasal cannula 2 l/min Lidocaine 2% added to field 20 Heparin Flush Bag added to field 2 bags (1000units/500ml NS) 0.9% NaCl I.V. 100 ml/hr Versed I.V. 2 mg Fentanyl I.V. 100 mcg Versed I.V. 1 mg Fentanyl I.V. 50 mcg Versed I.V. 1 mg Fentanyl I.V. 50 mcg Heparin Bolus I.V. 4000 units Hemodynamics Rest BSA: 2.43 (m2) O2 Consumption: Estimated: 274.19 (ml/min) O2 Consumption indexed : Estimated:112.84 (ml/min/m) Heart Rate: 62 (bpm) Snapshots Pre Cath Intra NCS Post Cath Vital Signs Time Heart Resp SPO2 etCO2 NIBP (mmHg) Rhythm Pain Sedation Rate (ipm) (%) (mmHg) Status Level (bpm) 12:34:29 64 18 99 0 134/68(102) NSR 0 (11) 10(A) , No pain 12:38:49 61 14 98 37.6 107/66(85) NSR 0 (11) 10(A) , No pain 12:43:09 58 14 98 38.3 110/57(90) NSR 0 (11) 10(A) , No pain 12:47:27 60 13 98 39 115/61(94) NSR 0 (11) 10(A) , No pain 12:51:45 58 11 99 39 114/66(84) NSR 0 (11) 10(A) , No pain 12:56:05 58 13 99 38.3 114/61(92) NSR 0 (11) 10(A) , No pain 13:00:25 61 14 96 37.5 112/62(83) NSR 0 (11) 9(A) , No pain 13:04:43 61 21 97 41.3 108/62(101) NSR 0 (11) 9(A) , No pain 13:08:59 62 18 98 45.8 119/66(91) NSR 0 (11) 9(A) , No pain 13:13:22 62 14 97 47.3 110/64(82) NSR 0 (11) 9(A) , No pain 13:17:39 66 14 98 45.1 103/60(78) NSR 0 (11) 9(A) , No pain 13:22:45 61 14 98 43.6 133/67(122) NSR 0 (11) 10(A) , No pain Medications Time Medication Route Dose Verified Delivered Reason Notes Effectiveness by by 12:33:53 Oxygen etCO2 2 Dylan Buffie used for Nasal l/min Vidya Damon RN procedure cannula 12:34:00 Lidocaine 2% added 20ml Dylan Buffie for local to vial Vidya Damon RN anesthetic field 12:34:06 Heparin Flush added 2 Dylan Buffie used for Bag to bags Vidya Damon RN procedure (1000units/500ml field NS) 12:34:14 0.9% NaCl I.V. 100 Dylan Buffie Per physician ml/hr Vidya Damon RN 12:58:20 Versed I.V. 2 mg Dylan Buffie for sedation Vidya Damon RN 12:59:26 Fentanyl I.V. 100 Dylan Seanie for sedation mcg Vidya Damon RN 13:06:08 Versed I.V. 1 mg Dylan Tinoco for sedation Vidya Damon RN 13:06:13 Fentanyl I.V. 50 Dylan Estradaie for sedation mcg Vidya Damon RN 13:10:39 Versed I.V. 1 mg Dylan Tinoco for sedation Vidya Damon RN 13:10:43 Fentanyl I.V. 50 Dylan Tinoco for sedation mcg Vidya Damon RN 13:12:34 Heparin Bolus I.V. 4000 Dylan Estradaie for verif ied units Vidya Damon RN anticoagulation with dr dasilva Procedure Log Time Note 12:10:35 Informed consent obtained and on chart 12:11:03 Procedure Status Urgent Heart Cath (IP). 12:11:26 Time tracking: Regular hours (M-F 7:00 - 5:00) 12:11:31 Plan of Care:Hemodynamics will remain stable., Cardiac rhythm will remain stable., Comfort level will be maintained., Respiratory function will remain adequate., Patient/ family verbilizes understanding of procedure., Procedure tolerated without complication., Recovers from procedure without complications.. 12:12:33 Lab Result : BUN 22 mg/dl 12:12:33 Lab Result : Creatinine 1.1 mg/dl 12:12:33 Lab Result : eGFR NONAFRICAN 70.45694 ml/min 12:12:33 Lab Result : Hemoglobin 13.8 g/dl 12:12:33 Lab Result : Hematocrit 41.9 % 12:13:31 Patient Weight : 260.15 lbs 12:13:41 Patient Height : 74 inches 12:13:47 Arrival Date: 08/06/2019 12:00:00 AM 12:16:09 Bushra Rolle RT(R) sent for patient. Start room use. 12:33:06 Patient received from ED to CCL 1 Alert and oriented. Tansferred to table in Supine position. 12:33:07 Warm blankets applied, and lenore hugger turned on for patient comfort. 12:33:07 Correct patient and procedure confirmed by team. 12:33:08 ECG and BP/O2 sat monitors applied to patient. 12:33:10 Vital chart was started 12:33:11 Full Disclosure recording started 12:33:15 H&P Date Dictated: 08/06/2019 ER History on chart.. 12:33:15 Pre-procedure instructions explained to patient. 12:33:16 Pre-op teaching completed and patient verbalized understanding. 12:33:17 Family in patients room. 12:33:19 Patient NPO since Midnight. 12:33:47 Patient allergic to Other allergyACETMAINOPHEN, VOLTAREN, HYDROCODONE 12:33:49 Is patient on blood thinner?Yes 12:33:52 ACC The patient was administered the following blood thiners within the last 24 hours: ACCPlavix 12:33:53 Oxygen 2 l/min etCO2 Nasal cannula was administered by Alejandrina Damon RN; used for procedure; Verbal order read back and verified. 12:33:58 Patient diabetic? No. 12:34:00 Lidocaine 2% 20ml vial added to field was administered by Alejandrina Damon RN; for local anesthetic; Verbal order read back and verified. 12:34:06 Heparin Flush Bag (1000units/500ml NS) 2 bags added to field was administered by Alejandrina Damon RN; used for procedure; Verbal order read back and verified. 12:34:14 0.9% NaCl 100 ml/hr I.V. was administered by Alejandrina Damon RN; Per physician; Verbal order read back and verified. 12:34:22 Previous problem with sedation/anesthesia? No ? 12:34:23 Snore? Yes 12:34:24 Sleep apnea? Yes 12:34:25 Deviated septum? No 12:34:26 Opens mouth fully? Yes 12:34:27 Sticks out tongue? Yes 12:34:29 Airway obstruction? No ? 12:34:33 Dentures? No ? 12:34:38 Pre procedure: right dorsailis pedis pulse 1+ Palpable, but thready & weak; easily obliterated 12:35:06 IV patent on arrival in left hand with 0.9% NaCl at [facility]. 12:35:08 Lab results completed and on chart. 12:35:12 Right groin area was prepped with chlora-prep and draped in sterile fashion 12:35:13 Alarms reviewed by R. N. 12:35:14 Sharps counted by scrub and verified by R.N. 12:35:17 Use device set Femoral Dx 12:35:18 ACIST Syringe (01458) opened to sterile field. 12:35:18 Bag Decanter (2001S) opened to sterile field. 12:35:19 Medline Cath Pack ([id number]) opened to sterile field. 12:35:20 ACIST Hand Control (18526) opened to sterile field. 12:35:20 ACIST Manifold (19799) opened to sterile field. 12:35:21 Tegaderm 4 x 4 (1626W) opened to sterile field. 12:35:23 SHEATH 5FR [place] (LWX005) opened to sterile field. 12:35:23 EMERALD Guide Wire (374-506) opened to sterile field. 12:41:12 DIAGNOSTIC Multipack 5Fr catheter set (KM0580) opened to sterile field. 12:56:49 Zero performed for pressure channel P1 12:56:56 Baseline sample Acquired. 12:56:59 Rhythm: sinus rhythm 12:57:04 --------ALL STOP TIME OUT------ 12:57:04 Final Timeout: patient, procedure, and site verified with staff and physician. All members of the team are in agreement. 12:57:05 Right groin site verified by team. 12:57:08 Fire Safety Assessment: A--An alcohol-based skin anteseptic being used preoperatively., C--Open oxygen or nitrous oxide is being used., D--An ESU, laser, or fiber-optic light is being used. 12:57:11 Physical assessment completed. ASA score P 2 - A patient with mild systemic disease as per Dylan Dasilva MD. 12:57:15 2) 60-89 Mildly reduced kidney function, and other findings (as for stage 1) point to kidney disease. 12:57:19 Maximum allowable contrast dose (3.7 X eGFR X 0.75)194 ml. 12:57:22 Sedation plan: IV Moderate Sedation Medication:Versed, Fentanyl 12:58:10 Procedure started. 12:58:13 Local anesthetic to right femoral artery with Lidocaine 2% by Dylan Dasilva MD.INITIAL ACCESS ONLY 12:58:20 Versed 2 mg I.V. was administered by Alejandrina Damon RN; for sedation; Verbal order read back and verified. 12:59:16 A 5 Fr sheath was inserted into the Right Femoral artery 12:59:23 A MULTIPACK Pigtail 5 Fr catheter was advanced over the wire and used for Procedure. 12:59:26 Fentanyl 100 mcg I.V. was administered by Alejandrina Damon RN; for sedation; Verbal order read back and verified. 12:59:26 LV gram done using CHAMBERS 12:59:29 Injector settings: Ml/sec: 10, Volume: 20, 12:59:45 EF : 65 % 12:59:46 Catheter removed. 13:00:13 A DIAGNOSTIC JL 6 5Fr catheter ([id number]) was advanced over the wire and used for Procedure. 13:00:49 UNABLE TO ENGAGE LCA 13:01:00 A MULTIPACK 3DRC 5Fr catheter was advanced over the wire and used for Procedure. 13:01:38 REYNOSO to LAD angiography performed. 13:02:38 Catheter removed. 13:02:46 A DIAGNOSTIC AR1 MOD 5Fr catheter ([id number]) was advanced over the wire and used for Procedure. 13:03:52 RCA angiography performed. 13:04:37 Catheter removed. 13:04:57 SVG to Circ angiography performed. 13:05:00 Catheter removed. 13:05:03 SHEATH 6FR [place] (MUK681) opened to sterile field. 13:05:04 GUIDE 6FR EBU 4.0 guide catheter ([id number]) opened to sterile field. 13:05:05 6 Fr EBU 4 guide catheter was inserted over the wire 13:05:13 Sheath upsized to a 6 Fr Short. 13:06:08 Versed 1 mg I.V. was administered by Alejandrina Damon RN; for sedation; Verbal order read back and verified. 13:06:13 Fentanyl 50 mcg I.V. was administered by Alejandrina Damon RN; for sedation; Verbal order read back and verified. 13:07:33 LCA angiography performed. 13:08:31 INFLATOR Merit BasixCompak (LG7672) opened to sterile field. 13:08:31 [place] Verrata Plus pressure wire (03397T) opened to sterile field. 13:09:32 FFR/IFR wire advanced. 13:10:39 Versed 1 mg I.V. was administered by Alejandrina Damon RN; for sedation; Verbal order read back and verified. 13:10:43 Fentanyl 50 mcg I.V. was administered by Alejandrina Damon RN; for sedation; Verbal order read back and verified. 13:11:16 UNABLE TO ADVANCE WIRE ACROSS LESION 13:11:20 WIRE REMOVED 13:11:28 CHOICE PT Extra Support 182cm wire ([id number]) opened to sterile field. 13:11:38 CHOICE ES 182 wire advanced. 13:12:34 Heparin Bolus 4000 units I.V. was administered by Alejandrina Damon RN; for anticoagulation; verified with dr dasilva Verbal order read back and verified. 13:14:00 Wire advanced across lesion. 13:15:13 Pre PCI Site: Koi Diag1 has 80% stenosis. 13:16:12 Inflate balloon Inflation number: 1 A Mozec Rx 2.5 x 14 balloon was prepped and advanced across the 1st Diag , then inflated to 17 TANIYA for 0:00 (min:sec) . 13:16:46 Balloon removed over the wire. 13:18:06 Place stent Inflation Number: 2 A MARJ RX 2.5 x 15 stent ([id number]) was prepped and advanced across the 1st Diag . The stent was deployed at 11 TANIYA for 0:00 (min:sec) . 13:18:19 Stent catheter was removed intact over wire. 13:18:25 Wire removed. 13:18:25 Guide catheter removed. 13:18:56 GUIDE 6FR MB 1 catheter (LA6MB1) opened to sterile field. 13:19:22 6 Fr MB 1 guide catheter was inserted over the wire 13:20:09 FFR/IFR wire advanced. 13:20:59 Wire advanced across lesion. 13:21:06 mRCA lesion measured at .99 with IFR 13:21:12 Wire removed. 13:21:12 Guide catheter removed. 13:21:35 EXOSEAL 6Fr (EX600) opened to sterile field. 13:21:46 Sheath removed intact; hemostasis achieved with Exoseal to the Right Femoral artery. 13:21:48 Procedure ended.(Physican Out) 13:22:07 Fluoroscopy time 08.90 minutes. 13:22:12 Flurop Dose total: 1445 13:22:12 Fluoroscopy dose: 1445 mGy 13:22:21 Dose Area Product 21172 mGy/cm. 13:22:36 Contrast amount:Isovue 300 187ml. 13:22:39 Maximum allowable dose exceeded? No. 13:22:40 Sharps counted by scrub and verified by R.N. 13:22:43 Post-op/insertion site Right Femoral artery dressed using a 4 x 4 and Tegaderm. 13:22:46 Post-procedure physical assessment completed. ASA score P 2 - A patient with mild systemic disease as per Dylan Dasilva MD. 13:22:53 Post procedure rhythm: sinus bradycardia 13:22:56 Estimated blood loss: 10 ml 13:22:57 Post procedure instruction explained to patient.Patient verbalizes understanding. 13:22:58 Patient needs reinforcement of post procedure teaching. 13:23:28 Procedure type changed to Cath procedure, Diagnostic procedure, LHC, LHC w/Coronaries w/Grafts, FFR/IVUS, FFR Initial, Sedation Charges, Moderate Sedation up to 15 minutes, PCI procedure, Coronary Stent, Coronary Stent Initial 13:25:22 ACT drawn and resulted at 220 seconds. (normal therapeutic range 180-240 seconds). 13:25:27 Procedure and supply charges have been captured, reviewed, submitted and are correct. 13:25:30 Procedure Complication : No complications 13:25:32 Vital chart was stopped 13:25:33 See physician's report for complete and final results. 13:27:33 Report given to Pre/Post Procedure Room. 13:27:36 Patient transfered to Pre/Post Procedure Room with Bed. 13:27:38 Procedure ended. 13:27:38 Full Disclosure recording stopped 13:27:42 End room use (Document Last) 13:28:46 End room use (Document Last) Intervention Summary Intervention Notes Time ActionType Lesion and Equipment Used Action# Pressure Duration Attributes 13:16:12 Inflate 1st Diag Mozec Rx 2.5 x 1 17 00:00 balloon 14 balloon 13:18:06 Place stent 1st Diag MARJ RX 2.5 x 2 11 00:00 15 stent ([id number]) Device Usage Item Name Manufacture Quantity Catalog Number Hospital Part Current Minimal Lot# / Charge Number Stock Stock Serial# Code ACIST Syringe Acist 1 54773 521991 123815 714264 20 (91904) Medical Raidarrr Inc Bag Decanter Microtek 1 791605 08709 998377 5 () Medical Inc. Medline Cath Medline 1 [id number] 974066 23388 651733 5 Pack ([id number]) ACIST Hand Acist 1 99503 039792 042985 054015 5 Control Medical (03436) Systems Inc ACIST Manifold Acist 1 48185 592711 331995 509627 5 (10662) Medical Systems Inc Tegaderm 4 x 4 3M 1 1626W 296850 727005 606910 5 (1626W) SHEATH 5FR Terumo 1 [id number] 741058 613580 968851 5 [place] (XYM874) EMERALD Guide Cardinal 1 502-455 069402 633671 406695 5 Wire (502-455) Health DIAGNOSTIC Cardinal 1 PL8347 435530 03031 867682 30 Multipack 5Fr Health catheter set (HR3234) MULTIPACK Cardinal 1 152398 5 Pigtail 5 Fr Health catheter DIAGNOSTIC JL Cardinal 1 [id number] 855300 776581 386521 5 6 5Fr catheter Health (561461W) MULTIPACK 3DRC Cardinal 1 864457 5 5Fr catheter Health DIAGNOSTIC AR1 Cardinal 1 276052Q 179475 881410 513695 15 MOD 5Fr Health catheter (375060I) SHEATH 6FR Terumo 1 SOT105 737542 880247 154804 40 [place] (HLD775) GUIDE 6FR EBU Medtronic 1 [id number] 871249 82383 631914 1 4.0 guide catheter ([id number]) INFLATOR Merit Merit 1 PC7933 055044 715716 259120 15 [facility] Medical (ZP2439) [place] 1 11902L 403145 [id number] 165548 5 Verrata Plus pressure wire (55758X) CHOICE PT [place] 1 [id number] 999944 317040 330073 5 Extra Support Scientific 182cm wire ([id number]) Mozec Rx 2.5 x Cardinal 1 [id number] 546672 40766 649071 5 UMOE39 14 balloon Health MARJ RX 2.5 x Medtronic 1 [id number] 977437 5167478 854291 5 [id number] 15 stent ([id number]) GUIDE 6FR MB 1 Medtronic 1 LA6MB1 963309 04481 074174 1 catheter (LA6MB1) EXOSEAL 6Fr Cardinal 1 EX600 062669 486013 760941 10 (EX600) Health Signature Audit [place] Stage Time Signature Unsigned Intra-Procedure 08/06/2019 Bushra Rolle 1:28:46 PM RT(R) Intra-Procedure 08/06/2019 Alejandrina Damon RN 1:29:06 PM Intra-Procedure 08/06/2019 Dylan Dasilva 1:31:09 PM [facility] [address] [place] [address]
[2019-08-06 10:29] LABS: BASOPHILS 0.4 % (0-2); EOSINOPHILS 2.7 % (0-7); HEMATOCRIT 41.9 % (42.0-54.0); HEMOGLOBIN 13.8 g/dL (13.5-17.5); IMMATURE GRANULOCYTES 0.2 % (0-5); LYMPHOCYTES 33.7 % (15-50); MCH 30.6 pg (26.0-34.0); MCHC 32.9 g/dL (31.0-37.0); MCV 92.9 fL (80.0-100.0); MEAN PLATELET VOLUME 9.2 fL (7.4-10.4); MONOCYTES 8.8 % (2-11); NEUTROPHILS 54.2 % (40-80); PLATELET COUNT 180 10x3/uL (130-400); RBC 4.51 10x6/uL (4.20-6.10); RDW 13.1 % (11.5-14.5); WBC 5.1 10x3/uL (4.8-10.8)
[2019-08-06 10:48] LABS: APTT 29.5 SECONDS (22.8-39.4); INR 1.01 (0.85-1.17); PROTIME 12.8 SECONDS (11.6-15.0)
[2019-08-06 10:49] LABS: ALBUMIN 3.5 g/dL (3.4-5.0); ALKALINE PHOSPHATASE 114 U/L (46-116); ALT (SGPT) 22 U/L (10-68); CALC OSMOLALITY 288 mosm/kg (275-300); CALCIUM 8.4 mg/dL (8.5-10.1); CARBON DIOXIDE 26.8 mmol/L (21.0-32.0); CHLORIDE - SERUM 108 mmol/L (98-107); CREATININE - SERUM 1.1 mg/dL (0.6-1.3); GLUCOSE 122 mg/dL (74-106); POTASSIUM - SERUM 4.1 mmol/L (3.5-5.1); PROTEIN - SERUM 6.9 g/dL (6.4-8.2); SODIUM 143 mmol/L (136-145); UREA NITROGEN 22 mg/dL (7-18); eGFR NON AFRICAN AMERICAN 70 mL/min (90-120)
[2019-08-06 10:57] LABS: CKMB 0.9 U/L (0.0-3.6); CREATINE KINASE 69 UL (21-232); MAGNESIUM - SERUM 1.9 mg/dL (1.8-2.4)
[2019-08-06 11:02] LABS: TROPONIN-I < 0.017 ng/mL (0.000-0.060)
[2019-08-06 11:39] VITALS: Ht 188 cm; Wt 118.2 kg
[2019-08-06 12:30] VITALS: BP 126/66
--- NOTE | 2019-08-06 13:40 | NUR ---
PT ARRIVED BY STRETCHER. PLACED ON MONITOR. ASSESSMENT COMPLETED. FAMILY AT BEDSIDE. CALL LIGHT WITHIN REACH.
--- NOTE | 2019-08-06 13:55 | NUR ---
PT RESTING COMFORTABLY. VSS. RIGHT GROIN DRESSING C/D/I. NO S/S OF HEMATOMA NOTED. CALL LIGHT WITHIN REACH. FAMILY AT BEDSIDE.
--- NOTE | 2019-08-06 14:30 | NUR ---
PT IN SUPINE POSITION. RIGHT GROIN DRESSING C/D/I. NO S/S OF HEMATOMA NOTED. DENIES NAUSEA. VSS. CALL LIGHT WITHIN REACH. FAMILY AT BEDSIDE.
--- NOTE | 2019-08-06 14:34 | CN ---
PATIENT NAME:NAYA ROCHA MEDICAL RECORD: [id number] : 46 LOCATION:[facility] ADMIT DATE: ACCOUNT: [id number] CONSULTING PHYSICIAN: SONI CHAVEZ MD REFERRING PHYSICIAN: SONI CHAVEZ MD DATE OF CONSULTATION: 08/06/2019 DIAGNOSES: 1. Unstable angina. 2. Coronary artery disease. 3. Status post multivessel percutaneous transluminal coronary angioplasty stent. 4. Hypertension. 5. Hyperlipidemia. HISTORY OF PRESENT ILLNESS: Mr. Rocha has had 1 week of shortness of breath, dyspnea on exertion and chest discomfort is just like that of his previous angina. It has escalated to class IV rest pain. He had pain all night. He continues to have pain this morning in the Emergency Room. He is on optimal medical management with an ARB, beta-oracio as well as long-acting nitrate with heart rates in the 60s. Systolic blood pressure in the 120-130 range. Last cardiac intervention was in January. His EKG is with no acute ST-T abnormalities. His pain level currently is at 6/10. PHYSICAL EXAMINATION: CONSTITUTIONAL/GENERAL APPEARANCE: Well nourished, well developed, appears stated age. EYES: Lids and conjunctivae noninjected. No discharge. No pallor. ENT: Lips within normal limit. No cyanosis. No pallor. NECK: Carotid arteries, bilateral normal upstroke. No bruits. No thrills. No jugular venous pressure or distention. CERVICAL LYMPH NODES: Nontender. Nonenlarged. THYROID: Not enlarged. No nodules. CARDIOVASCULAR: Precordial exam, nondisplaced. No heaves or pericardial thrills. Rate and rhythm, regular. Heart sounds, normal S1, normal S2. No S3, no gallop, no rub. Systolic murmur, not heard. Diastolic murmur, not heard. RESPIRATORY: Respiratory effort, unlabored. Normal curvature. No thoracic deformity. No chest wall tenderness. Percussion, resonant. Auscultation, clear. No wheezes, no rales, no rhonchi. ABDOMEN: Soft, nondistended, nontender. No abdominal pain, no vomiting and normal appetite. MUSCULOSKELETAL: No joint tenderness, normal gait, normal tone. SKIN: Warm and dry. OVERALL IMPRESSION: Unstable angina class IV in a patient with a past history of coronary artery disease, hypertension, hyperlipidemia, family history of coronary artery disease as well and just like that of his previous angina with continued pain despite maximal medical management. We will proceed with coronary angiography. TRANSINT:[id number] Voice Confirmation ID: [id number] DOCUMENT ID: [id number] CONSULT REPORT [id number] NAYA ROCHA, SONI POP at 1434 CC: [id number] DICTATION DATE: 08/06/19 1141 RECIPROCATING DRILL OPERATOR: 08/06/19 1337 [facility] [address] [place] [address]
--- NOTE | 2019-08-06 15:00 | NUR ---
PT IN SUPINE POSITION. RIGHT GROIN DRESSING C/D/I. NO S/S OF HEMATOMA NOTED. CALL LIGHT WITHIN REACH. FAMILY AT BEDSIDE. PT VOIDED 300cc OF CLEAR YELLOW URINE IN URINAL WITHOUT DIFFICULTY. NO NEEDS AT THIS TIME. TOLERATING SIPS OF WATER. DENIES NAUSEA/PAIN.
--- NOTE | 2019-08-06 15:30 | NUR ---
PT RESTING COMFORTABLY. VSS. RIGHT GROIN DRESSING C/D/I. NO S/S OF HEMATOMA NOTED. CALL LIGHT WITHIN REACH. FAMILY AT BEDSIDE. NO NEEDS AT THIS TIME. DENIES PAIN/NAUSEA. HANDOFF REPORT GIVEN TO BRANDI Burris RN. SHE WILL TAKE OVER CARE OF PT.
--- NOTE | 2019-08-06 16:00 | NUR ---
PT RESTING COMFORTABLY, R GROIN DRESSING REMAINS CDI NO BLEEDING OR HEMATOMA NOTED. LEG PINK AND WARM, PEDAL PULSES PALPABLE. CALL LIGHT IN REACH, AT BEDSIDE. VSS.
--- NOTE | 2019-08-06 16:35 | NUR ---
R GROIN SOFT, DRESSING CDI NO BLEEDING OR HEMATOMA NOTED. HOB ELEVATED SLIGHTLY. PT OFFERED SANDWICH, BUT DOESN'T WANT ANYTHING TO EAT RIGHT NOW. TOLERATING PO FLUIDS. CALL LIGHT IN REACH, AT BEDSIDE
--- NOTE | 2019-08-06 17:05 | NUR ---
PT DOING WELL, DENIES PAIN OR NEEDS. GROIN SOFT, DRESSING REMAINS CDI NO BLEEDING OR HEMATOMA NOTED. LEG PINK AND WARM, PEDAL PULSES PALPABLE. VSS. CALL LIGHT IN REACH
--- NOTE | 2019-08-06 17:19 | NUR ---
DISCHARGE INSTRUCTIONS REVIEWED W PT AND , BOTH VERBALIZED UNDERSTANDING. IV REMOVED W CATH INTACT, MONITORS AND O2 REMOVED. PT UP TO DRESS FOR DISCHARGE.
--- NOTE | 2019-08-06 17:23 | NUR ---
PT AMBULATED TO BR, VOIDING W/O DIFFICULITY
--- NOTE | 2019-08-06 17:25 | NUR ---
PT DISCHARGED VIA WC TO WAITING IN PRIVATE VEHICLE. PT HAS ALL BELONGINGS AND DISCHARGE INFORMATION
--- NOTE | 2019-08-16 13:30 | OP ---
PATIENT NAME: NAYA BLANTON MEDICAL RECORD: [id number] :46 LOCATION:D.CAT ADMISSION DATE: SURGEON: SONI CHAVEZ MD DATE OF OPERATION: 08/06/2019 PROCEDURES: 1. PTCA stent LAD diagonal. 2. IFR. 3. Left heart catheterization. 4. Selective coronary angiography. 5. Vein graft angiography. 6. REYNOSO angiography. 7. Left ventriculogram. INDICATION: Angina and coronary artery disease. PROCEDURE IN DETAIL: After informed consent was obtained, after detailed description of risks, benefits as well as alternative therapies, the patient elected to proceed with angiogram and angioplasty. The right femoral area was prepped and draped in normal sterile fashion. The right femoral artery was cannulated via modified Seldinger technique with placement of 6-Irish sheath. All catheters exchanged through this sheath. FINDINGS: Left ventriculogram was performed in a standard 30-degree CHAMBERS view, reveals good cardiac wall motion, ejection fraction 70%. SELECTIVE CORONARY ANGIOGRAPHY: 1. Left main showed no significant angiographic disease. 2. Left anterior descending is totally occluded in mid vessel prior to the total occlusion is a relatively large LAD diagonal takes off at the 80-85% stenosis proximally. This is very heavily calcified. We tried to pass an IFR wire through this, IFR wire would not pass. 3. Left circumflex has 100% stenosis of the first obtuse marginal, elsewise circumflex is widely patent. 4. Vein graft to the first obtuse marginal is widely patent. Distal marginal was widely patent. 5. REYNOSO to the LAD is widely patent. Distal LAD is widely patent. 6. The right coronary has previously placed stents, these are widely patent. There is a questionable area of stenosis in the mid vessel; however, IFR was normal at 0.99. PTCA STENT OF THE LAD DIAGONAL: The stent used was a 2.5 x 15 mm [place], taken to 21 atmospheres. Result was 0% residual stenosis. OVERALL IMPRESSION: Successful percutaneous transluminal angioplasty stent of the left anterior descending diagonal that is non-grafted going from 85% initial stenosis to 0% residual. TRANSINT:[id number] Voice Confirmation ID: [id number] DOCUMENT ID: [id number] OPERATIVE REPORT [id number] NAYA BLANTON KATHY, SONI POP at 1330 CC: [id number] DICTATION DATE: 08/06/19 1327 CARBON BRUSHER ASSEMBLER: 08/07/19 0051 DEP CLI 08/06/19 [facility] [address] [id number]
== END 2019-08-06 17:25 | disposition home or self-care (01) ==
LOC: D.CATH 12:53 → D.CLR 13:48 → D.CATH 17:25
PROVIDERS: Family Medicine; ATTEND Internal Medicine Interventional Cardiology
DX: I25.110 Atherosclerotic heart disease of native coronary artery with unstable angina pectoris (principal); I10 Essential (primary) hypertension; E78.5 Hyperlipidemia, unspecified
CPT/HCPCS: C9600; 93459; 93571

== ENCOUNTER 2019-10-18 21:13 | Emergency (ER) | payer MEDICARE, BC ==
[~2019-10-18] VITALS: Ht 188 cm; Wt 118.2 kg
[2019-10-18 21:30] VITALS: Ht 188 cm; Wt 118.2 kg
[2019-10-18 23:08] LABS: BASOPHILS 0.6 % (0-2); EOSINOPHILS 3.2 % (0-7); HEMATOCRIT 43.4 % (42.0-54.0); HEMOGLOBIN 14.1 g/dL (13.5-17.5); IMMATURE GRANULOCYTES 0.2 % (0-5); LYMPHOCYTES 30.6 % (15-50); MCH 30.5 pg (26.0-34.0); MCHC 32.5 g/dL (31.0-37.0); MCV 93.9 fL (80.0-100.0); MEAN PLATELET VOLUME 9.1 fL (7.4-10.4); MONOCYTES 9.9 % (2-11); NEUTROPHILS 55.5 % (40-80); PLATELET COUNT 210 10x3/uL (130-400); RBC 4.62 10x6/uL (4.20-6.10); RDW 12.9 % (11.5-14.5); WBC 6.3 10x3/uL (4.8-10.8)
[2019-10-18 23:14] LABS: APPEARANCE CLEAR (CLEAR); BILIRUBIN NEGATIVE (NEGATIVE); COLOR YELLOW (YELLOW); GLUCOSE NEGATIVE (NEGATIVE); KETONE NEGATIVE (NEGATIVE); NITRITE NEGATIVE (NEGATIVE); PROTEIN NEGATIVE (NEGATIVE); UROBILINOGEN NORMAL (NORMAL)
[2019-10-18 23:23] LABS: ANION GAP 7.1 mmol/L (8-16); CALCIUM 8.6 mg/dL (8.5-10.1); CARBON DIOXIDE 29.9 mmol/L (21.0-32.0); CREATININE - SERUM 1.3 mg/dL (0.6-1.3)
[2019-10-18 23:28] LABS: ALBUMIN 3.5 g/dL (3.4-5.0); BILIRUBIN - TOTAL 0.36 mg/dL (0.2-1.3); PROTEIN - SERUM 6.9 g/dL (6.4-8.2)
[2019-10-19] MEDS ORDERED: ULTRAM50 MG PO (01:09)
[2019-10-19 01:20] VITALS: BP 139/82
== END 2019-10-19 01:20 | disposition home or self-care (01) ==
LOC: D.ER 21:13
PROVIDERS: Family Medicine
DX: R10.12 Left upper quadrant pain (principal); K43.9 Ventral hernia without obstruction or gangrene

== ENCOUNTER 2019-11-02 14:44 | Observation (INO) | payer MEDICARE, BC ==
[~2019-11-02] VITALS: Ht 188 cm; Wt 118.2 kg
--- NOTE | ~2019-11-02 | HEMODYNAMI ---
PATIENT:NAYA BLANTON MEDICAL RECORD: [id number] : 46 LOCATION:[facility] D.2116 ADMISSION DATE: 11/02/19 Generatedon:11/03/201911:39 Patient name: NAYA BLANTON Patient #: [id number] : 1950 Date of study: 11/03/2019 Page: Of Hemodynamic Procedure Report Patient Data Patient Demographics Procedure consent was obtained First Name: NAYA Gender: Male Last Name: HARVINDER : 1950 Middle Initial: ANABELL Age: 69 year(s) Patient #: [id number] Race: SSN: [id number] Additional ID: [id number] Contact details Address: [address] [place] [address] State: [place] City: [place] Zip code: [address] Past Medical History Allergies Allergen Reaction Date Comments Reported Other allergy 07/05/2015 Acetametaphin, Diclofenac, Sodium, Hydrocodone Other allergy 02/03/2018 VICITAN, VOLTARIAN Other allergy 01/11/2019 vicoden, veltram Other allergy 08/06/2019 ACETMAINOPHEN, VOLTAREN, HYDROCODONE Admission Admission Data Admission Date: 11/02/2019 Admission Time: 17:49 Arrival Date: 11/02/2019 Arrival Time: 17:49 Admit Source: Emergency Insurance Payor: Medicare, department Private health insurance Room #: D.2116 [facility] #: [id number] Height (in.): 74.02 BSA: 2.43 (m2) Height (cm.): 188 BMI: 33.39 (kg/m2) Weight (lbs.): 260.15 Weight (kg.): 118 Lab Results Lab Result Date: 11/03/2019 Lab Result Time: 0:00 Biochemistry Name Units Result Min Max BUN mg/dl 22 --(----)-* 7 18 Creatinine mg/dl 1.1 --(--*-)-- 0.6 1.3 eGFR ml/min 70.77660 *-(----)-- 90 120 NONAFRICAN CBC Name Units Result Min Max Hemoglobin g/dl 13.6 --(*---)-- 13.5 17.5 Procedure Procedure Types Cath Procedure Diagnostic Procedure [facility] w/Coronaries w/Grafts FFR/IVUS FFR Initial Sedation Charges Moderate Sedation up to 30 minutes Procedure Description Procedure Date Procedure Date: 11/03/2019 Procedure Start Time: 11:09 Procedure End Time: 11:36 Procedure Staff Name Function Dylan Dasilva MD Performing Physician Justina Agarwal RT Monitor Sharon Cortes RT Scrub Alejandrina Damon RN Nurse Procedure Data Cath Procedure Fluoroscopy Diagnostic fluoroscopy Total fluoroscopy Time: 9.9 time: 9.9 min min Diagnostic fluoroscopy Total fluoroscopy dose: dose: 1241 mGy 1241 mGy Contrast Material Contrast Material Type Amount (ml) Isovue 300 61 Entry Location Entry Primary Successful Side Size Upsize Upsize Entry Closure Succes sful Closure Location (Fr) 1 (Fr) 2 (Fr) Remarks Device Remarks Femoral Right 6 Fr Exoseal artery Short Estimated blood loss: 10 ml Diagnostic catheters Device Type Used For End Catheter Placement MULTIPACK Pigtail 5 Fr Procedure catheter DIAGNOSTIC JL 5 5Fr Procedure catheter ([id number]) MULTIPACK 3DRC 5Fr Procedure catheter DIAGNOSTIC AR1 MOD 5Fr Procedure catheter ([id number]) Procedure Complications No complications Procedure Medications Medication Administration Route Dosage Oxygen etCO2 Nasal cannula 2 l/min Lidocaine 2% added to field 20 Heparin Flush Bag added to field 2 bags (1000units/500ml NS) 0.9% NaCl I.V. 100 ml/hr Versed I.V. 2 mg Fentanyl I.V. 50 mcg Versed I.V. 1 mg Fentanyl I.V. 50 mcg Versed I.V. 1 mg Versed I.V. 2 mg Hemodynamics Rest BSA: 2.43 (m2) HGB: 13.6 (g/dl) O2 Consumption: Estimated: 275.2 (ml/min) O2 Con sumption indexed: Estimated:113.25 (ml/min/m) Heart Rate: 64 (bpm) Snapshots Pre Cath Intra NCS Post Cath Vital Signs Time Heart Resp SPO2 etCO2 NIBP (mmHg) Rhythm Pain Sedation Rate (ipm) (%) (mmHg) Status Level (bpm) 10:52:11 60 13 96 0 127/70(108) NSR 0 (11) 10(A) , No pain 10:56:27 63 16 98 32.1 119/70(106) NSR 0 (11) 10(A) , No pain 11:00:39 62 12 95 38.8 108/64(82) NSR 0 (11) 10(A) , No pain 11:04:53 62 10 94 0 109/56(85) NSR 0 (11) 10(A) , No pain 11:09:05 55 12 95 35.8 108/66(91) NSR 0 (11) 10(A) , No pain 11:13:19 62 11 96 0 118/57(104) NSR 0 (11) 9(A) , No pain 11:17:31 64 12 96 35 109/62(84) NSR 0 (11) 9(A) , No pain 11:21:45 65 12 95 38.8 109/58(97) NSR 0 (11) 9(A) , No pain 11:25:57 65 11 96 36.5 101/55(74) NSR 0 (11) 9(A) , No pain 11:30:06 70 13 97 37.3 116/62(92) NSR 0 (11) 9(A) , No pain 11:34:20 67 12 95 37.3 109/62(94) NSR 0 (11) 10(A) , No pain Medications Time Medication Route Dose Verified Delivered Reason Notes Eff ectiveness by by 10:56:07 Oxygen etCO2 2 Dylan Tinoco used for Nasal l/min Vidya Damon RN procedure cannula 10:56:14 Lidocaine 2% added 20ml Dylan Richardson for local to vial Vidya Dasilva MD anesthetic field 10:56:20 Heparin Flush added 2 Dylan Richardson used for Bag to bags Vidya Dasilva MD procedure (1000units/500ml field NS) 10:56:29 0.9% NaCl I.V. 100 Dylan Tinoco Per ml/hr Vidya Damon RN physician 11:09:12 Versed I.V. 2 mg Dylan Tinoco for Vidya Damon RN sedation 11:09:18 Fentanyl I.V. 50 Dylan Tinoco for mcg Tauth MD Damon RN sedation 11:11:51 Versed I.V. 1 mg Dylan Tinoco for Vidya Damon RN sedation 11:11:55 Fentanyl I.V. 50 Dylan Tinoco for mcg Vidya Damon RN sedation 11:18:51 Versed I.V. 1 mg Dylan Tinoco for Vidya Damon RN sedation 11:25:36 Versed I.V. 2 mg Dylan Tinoco for Vidya Damon RN sedation Procedure Log Time Note 10:29:14 Justina Agarwal RT(R) sent for patient. Start room use. 10:36:12 Informed consent obtained and on chart 10:36:16 Diagnostic Cath Status : Urgent 10:37:59 Admit Source: Emergency department 10:38:08 Arrival Date: 11/02/2019 5:49:00 PM 10:38:31 Insurance Payor : Private health insurance, Medicare 10:38:42 Patient Height : 74.02 inches 10:38:48 Patient Weight : 260.15 lbs 10:39:12 Lab Result : eGFR NONAFRICAN 70.95113 ml/min 10:39:12 Lab Result : Hemoglobin 13.6 g/dl 10:39:12 Lab Result : BUN 22 mg/dl 10:39:12 Lab Result : Creatinine 1.1 mg/dl 10:39:15 Time tracking: Regular hours (M-F 7:00 - 5:00) 10:39:19 Plan of Care:Hemodynamics will remain stable., Cardiac rhythm will remain stable., Comfort level will be maintained., Respiratory function will remain adequate., Patient/ family verbilizes understanding of procedure., Procedure tolerated without complication., Recovers from procedure without complications.. 10:41:40 Risk of Mortality: 1.7 10:41:44 Risk of blood transfusion: 1.0 10:41:47 Risk of SUZANNE: 5.4 10:43:00 Patient received from Med II to CCL 1 Alert and oriented. Tansferred to table in Supine position. 10:43:01 Warm blankets applied, and lenore hugger turned on for patient comfort. 10:43:02 Correct patient and procedure confirmed by team. 10:43:02 ECG and BP/O2 sat monitors applied to patient. 10:47:04 Vital chart was started 10:47:05 Baseline sample Acquired. 10:47:14 Rhythm: sinus rhythm 10:47:16 Full Disclosure recording started 10:47:20 H&P Date Dictated: 11/03/2019 New H&P dictated by physician.. 10:47:21 Pre-procedure instructions explained to patient. 10:47:22 Pre-op teaching completed and patient verbalized understanding. 10:47:23 Family in patients room. 10:47:24 Patient NPO since Midnight. 10:47:26 Is the patient allergic to Iodine/contrast media? No. 10:47:27 Was the patient premedicated? Yes 10:47:29 Is patient on blood thinner?Yes 10:47:31 ACC The patient was administered the following blood thiners within the last 24 hours: ACCPlavix 10:47:34 Patient diabetic? No. 10:47:36 Previous problem with sedation/anesthesia? No ? 10:47:38 Snore? Yes 10:47:39 Sleep apnea? Yes 10:47:40 Deviated septum? No 10:47:41 Opens mouth fully? Yes 10:47:41 Sticks out tongue? Yes 10:47:51 Dentures? No ? 10:47:54 Airway obstruction? No ? 10:47:58 Pre procedure: right dorsailis pedis pulse 2+ Normal; easily identifiable; not easily obliterated 10:48:00 Pre procedure: left dorsailis pedis pulse 2+ Normal; easily identifiable; not easily obliterated 10:48:05 IV patent on arrival in left forearm with 0.9% NaCl at KVO. 10:48:07 Lab results completed and on chart. 10:48:12 Right groin area was prepped with chlora-prep and draped in sterile fashion 10:48:13 Alarms reviewed by R. N. 10:48:13 Sharps counted by scrub and verified by R.N. 10:49:39 2) 60-89 Mildly reduced kidney function, and other findings (as for stage 1) point to kidney disease. 10:49:57 Maximum allowable contrast dose (3.7 X eGFR X 0.75)174 ml. 10:50:53 Sedation plan: IV Moderate Sedation Medication:Versed, Fentanyl 10:55:51 - 10:55:52 Physician paged 10:56:05 Fire Safety Assessment: A--An alcohol-based skin anteseptic being used preoperatively., C--Open oxygen or nitrous oxide is being used., D--An ESU, laser, or fiber-optic light is being used. 10:56:07 Oxygen 2 l/min etCO2 Nasal cannula was administered by Alejandrina Damon RN; used for procedure; Verbal order read back and verified. 10:56:11 Physical assessment completed. ASA score P 4 - A patient with severe systemic disease that is a constant threat to life as per Dylan Dasilva MD. 10:56:14 Lidocaine 2% 20ml vial added to field was administered by Dylan Dasilva MD; for local anesthetic; Verbal order read back and verified. 10:56:20 Heparin Flush Bag (1000units/500ml NS) 2 bags added to field was administered by Dylan Dasilva MD; used for procedure; Verbal order read back and verified. 10:56:29 0.9% NaCl 100 ml/hr I.V. was administered by Alejandrina Damon RN; Per physician; Verbal order read back and verified. 10:57:27 Use device set Femoral Dx 10:57:29 ACIST Syringe (71880) opened to sterile field. 10:57:29 Bag Decanter () opened to sterile field. 10:57:29 Medline Cath Pack ([id number]) opened to sterile field. 10:57:31 ACIST Hand Control (73950) opened to sterile field. 10:57:31 ACIST Manifold (41395) opened to sterile field. 10:57:32 DIAGNOSTIC Multipack 5Fr catheter set ([id number]) opened to sterile field. 10:57:34 Tegaderm 4 x 4 (1626W) opened to sterile field. 11:00:22 EMERALD Guide Wire (153-415) opened to sterile field. 11:00:28 Zero performed for pressure channel P1 11:08:44 Physician arrived 11:08:44 --------ALL STOP TIME OUT------ 11:08:45 Final Timeout: patient, procedure, and site verified with staff and physician. All members of the team are in agreement. 11:08:47 Right groin site verified by team. 11:08:55 Procedure started. 11:09:05 Local anesthetic to right femoral artery with Lidocaine 2% by Dylan Dasilva MD.INITIAL ACCESS ONLY 11:09:12 Versed 2 mg I.V. was administered by Alejandrina Damon RN; for sedation; Verbal order read back and verified. 11:09:14 A 6 Fr Short sheath was inserted into the Right Femoral artery 11:09:18 Fentanyl 50 mcg I.V. was administered by Alejandrina Damon RN; for sedation; Verbal order read back and verified. 11:10:08 A MULTIPACK Pigtail 5 Fr catheter was advanced over the wire and used for Procedure. 11:10:13 LV gram done using CHAMBERS 11:10:19 EF : 50 % 11:10:22 Catheter removed. 11:10:29 A DIAGNOSTIC JL 5 5Fr catheter ([id number]) was advanced over the wire and used for Procedure. 11:11:51 Versed 1 mg I.V. was administered by Alejandrina Damon RN; for sedation; Verbal order read back and verified. 11:11:55 Fentanyl 50 mcg I.V. was administered by Alejandrina Damon RN; for sedation; Verbal order read back and verified. 11:12:39 LCA angiography performed. 11:12:52 Catheter removed. 11:13:19 A MULTIPACK 3DRC 5Fr catheter was advanced over the wire and used for Procedure. 11:13:22 REYNOSO to LAD angiography performed. 11:13:36 Catheter removed. 11:13:44 A DIAGNOSTIC AR1 MOD 5Fr catheter ([id number]) was advanced over the wire and used for Procedure. 11:16:59 SVG to Circ angiography performed. 11:17:11 RCA angiography performed. 11:17:21 Catheter removed. 11:17:45 GUIDE 6FR MB 1 catheter (LA6MB1) opened to sterile field. 11:18:14 6 Fr mb1 guide catheter was inserted over the wire 11:18:28 CHOICE PT Extra Support 182cm wire ([id number]) opened to sterile field. 11:18:29 INFLATOR Merit BasixCompak (PU3594) opened to sterile field. 11:18:36 CHOICE PT wire advanced. 11:18:51 Versed 1 mg I.V. was administered by Alejandrina Damon RN; for sedation; Verbal order read back and verified. 11:20:31 Crosby Verrata Plus pressure wire (96989W) opened to sterile field. 11:25:36 Versed 2 mg I.V. was administered by Alejandrina Damon RN; for sedation; Verbal order read back and verified. 11:28:32 FFR/IFR wire advanced. 11:28:34 Wire advanced across lesion. 11:29:35 WE HAD CHOICE PT WITH IFR WIRE AND THE READING WAS OFF. OPENING A NEW IFR 11:29:54 Wire removed. 11:30:16 Crosby Verrata Plus pressure wire (43721F) opened to sterile field. 11:31:10 FFR/IFR wire advanced. 11:31:33 Wire advanced across lesion. 11:31:36 Baseline FFR .93. 11:32:12 mRCA lesion measured at .93 with IFR 11:33:15 Wire removed. 11:33:16 Guide catheter removed. 11:33:28 EXOSEAL 6Fr (EX600) opened to sterile field. 11:33:44 Sheath removed intact; hemostasis achieved with Exoseal to the Right Femoral artery. 11:34:10 Procedure ended.(Physican Out) 11:34:21 Fluoroscopy time 09.90 minutes. 11:34:28 Fluoroscopy dose: 1241 mGy 11:34:28 Flurop Dose total: 1241 11:34:47 Dose Area Product 99429 mGy/cm. 11:34:52 Contrast amount:Isovue 300 61ml. 11:34:56 Maximum allowable dose exceeded? No. 11:35:04 Insertion/operative site no bleeding no hematoma. 11:35:07 Post-op/insertion site Right Femoral artery dressed using a 4 x 4 and Tegaderm. 11:35:09 Post Procedure Pulses reassessed and unchanged 11:35:20 Post-procedure physical assessment completed. ASA score P 4 - A patient with severe systemic disease that is a constant threat to life as per Dylan Dasilva MD. 11:35:24 Post procedure rhythm: unchanged. 11:35:27 Estimated blood loss: 10 ml 11:35:30 Post procedure instruction explained to patient.Patient verbalizes understanding. 11:35:55 Procedure type changed to Cath procedure, Diagnostic procedure, LHC, LH C w/Coronaries w/Grafts, FFR/IVUS, FFR Initial, Sedation Charges, Moderate Sedation up to 30 minutes 11:35:57 Procedure and supply charges have been captured, reviewed, submitted an d are correct. 11:36:27 Procedure Complication : No complications 11:36:30 Vital chart was stopped 11:36:36 [facility] Findings: mild to moderate CAD (<70%) 11:36:39 See physician's report for complete and final results. 11:36:41 Report given to [facility]. 11:36:44 Patient transfered to [facility] with Bed. 11:36:47 Procedure ended. 11:36:47 Full Disclosure recording stopped 11:36:54 End room use (Document Last) Device Usage Item Name Manufacture Quantity Catalog Number Hospital Part Current [facility] Lot# / Charge Number Stock Stock Serial# Code ACIST Acist 1 84569 388175 314652 993744 20 Syringe Medical (63948) Systems Inc Bag Microtek 1 946582 29817 117892 5 Decanter Medical Inc. () Medline Medline 1 [id number] 366657 11958 485242 5 Cath Pack ([id number]) ACIST Hand Acist 1 06383 902293 953214 178891 5 Control Medical (93412) Systems Inc ACIST Acist 1 42766 226971 155323 273907 5 Manifold Medical (08230) Systems Inc DIAGNOSTIC Cardinal 1 TF7465 921225 13623 962322 30 Multipack Health 5Fr catheter set (US6359) Tegaderm 4 3M 1 1626W 731160 837633 779347 5 x 4 (1626W) EMERALD Cardinal 1 502-455 008992 873703 910618 5 Guide Wire Health (502-455) MULTIPACK Cardinal 1 735917 5 Pigtail 5 Health Fr catheter DIAGNOSTIC Cardinal 1 [id number] 860151 388545 036850 5 JL 5 5Fr Health catheter (821336I) MULTIPACK Cardinal 1 413441 5 3DRC 5Fr Health catheter DIAGNOSTIC Cardinal 1 [id number] 385965 349978 955718 15 AR1 MOD 5Fr Health catheter (789694Y) GUIDE 6FR Medtronic 1 LA6MB1 079394 27263 396221 1 MB 1 catheter (LA6MB1) CHOICE PT [place] 1 [id number] 914310 762058 840000 5 Extra Scientific Support 182cm wire (1153833Z4) INFLATOR Merit 1 HD9611 568811 863912 010889 15 Merit Medical BasixCompak (HF6685) Crosby Crosby 2 42208I 602118 [id number] 528232 5 Verrata Plus pressure wire (15763A) EXOSEAL 6Fr Cardinal 1 EX600 055197 779139 965307 10 (EX600) Health Signature Audit [place] Stage Time Signature Unsigned Intra-Procedure 11/03/2019 Justina Agarwal 11:37:33 AM RT(R) Intra-Procedure 11/03/2019 Alejandrina Damon RN 11:38:20 AM Intra-Procedure 11/03/2019 Dylan Dasilva 11:39:46 AM [address] [place] [address]
--- NOTE | ~2019-11-02 | CN ---
PATIENT NAME:NAYA ROCHA MEDICAL RECORD: [id number] : 46 LOCATION:. D.2116 ADMIT DATE: 11/02/19 ACCOUNT: [id number] CONSULTING PHYSICIAN: SONI CHAVEZ MD REFERRING PHYSICIAN: SHERRELL SERRANO MD DATE OF CONSULTATION: 11/03/2019 ADMITTING DIAGNOSES: 1. Unstable angina class IV. 2. Coronary artery disease. 3. Previous multivessel percutaneous transluminal coronary angioplasty stent. 4. Previous bypass surgery. 5. Hypertension. 6. Hyperlipidemia. 7. Family history of premature coronary artery disease. HISTORY OF PRESENT ILLNESS: Mr. Rocha has advanced coronary artery disease, previous bypass surgery, previous multivessel PTCA stent, who for the past 3 days has had increasing episodes of chest pain. He is having significant rest pain. He had chest pain all day yesterday despite multiple sublingual nitro as well as increasing his Imdur. He has continued to have discomfort throughout the night and this morning, it is just like that of his previous angina. PHYSICAL EXAMINATION: CONSTITUTIONAL/GENERAL APPEARANCE: Well nourished, well developed, appears stated age. EYES: Lids and conjunctivae noninjected. No discharge. No pallor. ENT: Lips within normal limit. No cyanosis. No pallor. NECK: Carotid arteries, bilateral normal upstroke. No bruits. No thrills. No jugular venous pressure or distention. CERVICAL LYMPH NODES: Nontender. Nonenlarged. THYROID: Not enlarged. No nodules. CARDIOVASCULAR: Precordial exam, nondisplaced. No heaves or pericardial thrills. Rate and rhythm, regular. Heart sounds, normal S1, normal S2. No S3, no gallop, no rub. Systolic murmur, not heard. Diastolic murmur, not heard. RESPIRATORY: Respiratory effort, unlabored. Normal curvature. No thoracic deformity. No chest wall tenderness. Percussion, resonant. Auscultation, clear. No wheezes, no rales, no rhonchi. ABDOMEN: Soft, nondistended, nontender. No abdominal pain, no vomiting and normal appetite. MUSCULOSKELETAL: No joint tenderness, normal gait, normal tone. SKIN: Warm and dry. OVERALL IMPRESSION: Unstable angina class IV, despite optimal medical therapy with beta blockade and long-acting nitrates with heart rates in the 50s; and systolic blood pressure in the 100 range, hence there is no room for increased medical management. We will proceed with repeat coronary angiography. Further care depends upon the findings of the angiography. TRANSINT:[id number] Voice Confirmation ID: [id number] DOCUMENT ID: [id number] CONSULT REPORT [id number] NAYA ROCHA [place] MD CC: [id number] DICTATION DATE: 11/03/19906 CORK TILE FLOOR LAYER: 11/03/19 1042 ADM IN [id number] [place] [address]
--- NOTE | ~2019-11-02 | OP ---
PATIENT NAME: NAYA BLANTON MEDICAL RECORD: [id number] :46 LOCATION:D.M2 D.2116 ADMISSION DATE:11/02/19 SURGEON: SONI CHAVEZ MD DATE OF OPERATION: 11/03/2019 DATE OF SERVICE: 11/03/2019 PROCEDURES: 1. IFR RCA. 2. Left heart catheterization. 3. Selective coronary angiography. 4. Left ventriculogram. 5. Vein graft angiography. 6. REYNOSO angiography. INDICATION: Angina and coronary artery disease. PROCEDURE IN DETAIL: After informed consent was obtained and after detailed description of the risks, benefits as well as alternative therapies, the patient elected to proceed with angiogram and angioplasty. The right femoral area was prepped and draped in normal sterile fashion. Right femoral artery was cannulated via modified Seldinger technique with placement of 6-Latvian sheath. All catheters exchanged through this sheath. FINDINGS: Left ventriculogram was performed in a standard 30-degree CHAMBERS view, reveals good cardiac wall motion throughout all segments. Overall ejection fraction estimated 60%. SELECTIVE CORONARY ANGIOGRAPHY: 1. Left main is with no significant angiographic disease. 2. Left anterior descending has previously placed stents in the diagonal that are widely patent. The left anterior descending is then occluded. 3. REYNOSO to the LAD is widely patent. Distal LAD is widely patent. 4. The left circumflex has 90% stenosis, first obtuse marginal. 5. Vein graft to the first obtuse marginal is widely patent, distal obtuse marginal is widely patent. 6. The right coronary has previously placed stents, these are widely patent. An IFR was normal in the RCA. OVERALL IMPRESSION: Wide patency of the previously placed stents as well as bypass grafts. Continue medical management of the coronary artery disease and cardiac risk factors. TRANSINT:[id number] Voice Confirmation ID: [id number] DOCUMENT ID: [id number] SONI CHAVEZ MD CC: [id number] DICTATION DATE: 11/03/19 1140 STAFF ANALYST: 11/03/19 1217 ADM IN [address] [place] [address]
--- NOTE | ~2019-11-02 | DS ---
PATIENT:NAYA ROCHA :46 MEDICAL RECORD: [id number] DISCHARGE SUMMARY ADMISSION DATE: 11/02/19 DISCHARGE DATE: 11/03/19 DATE OF DISCHARGE: 11/03/2019 DISCHARGE DIAGNOSES: 1. Angina. 2. Coronary artery disease. 3. Previous bypass surgery. 4. Previous percutaneous transluminal coronary angioplasty and stent. 5. Hypertension. 6. Hyperlipidemia. HOSPITAL COURSE: Mr. Rocha presents with anginal symptomatology; however, cardiac catheterization revealed wide patency of his previous stents and bypass surgeries. His Imdur was increased from 30 mg every day to 60 mg b.i.d. He will follow up with [facility] as previously scheduled. TRANSINT:[id number] Voice Confirmation ID: [id number] DOCUMENT ID: [id number] SONI CHAVEZ MD CC: [id number] DICTATION DATE: 11/03/19 1139 BICYCLE REPAIRER: 11/03/19 1632 DIS IN 11/03/19 [facility] [address] [place] [address]
[~2019-11-02 14:44] MED LIST changes: -IMDUR30 MG PO; +ISOSORBIDE DINI30 MG PO; +ULTRAM50 MG PO
[2019-11-02 15:23] VITALS: BP 129/61
[2019-11-02 15:25] LABS: BASOPHILS 0.4 % (0-2); EOSINOPHILS 2.3 % (0-7); HEMATOCRIT 43.8 % (42.0-54.0); HEMOGLOBIN 14.7 g/dL (13.5-17.5); IMMATURE GRANULOCYTES 0.3 % (0-5); LYMPHOCYTES 32.9 % (15-50); MCHC 33.6 g/dL (31.0-37.0); MCV 92.4 fL (80.0-100.0); MEAN PLATELET VOLUME 9.2 fL (7.4-10.4); MONOCYTES 10.1 % (2-11); PLATELET COUNT 205 10x3/uL (130-400); RBC 4.74 10x6/uL (4.20-6.10); RDW 12.7 % (11.5-14.5); WBC 7.1 10x3/uL (4.8-10.8)
[2019-11-02 15:33] LABS: CALC OSMOLALITY 282 mosm/kg (275-300); CALCIUM 8.9 mg/dL (8.5-10.1); CARBON DIOXIDE 27.1 mmol/L (21.0-32.0); CHLORIDE - SERUM 104 mmol/L (98-107); CREATININE - SERUM 1.2 mg/dL (0.6-1.3); GLUCOSE 104 mg/dL (74-106); POTASSIUM - SERUM 3.9 mmol/L (3.5-5.1); SODIUM 140 mmol/L (136-145); UREA NITROGEN 23 mg/dL (7-18); eGFR NON AFRICAN AMERICAN 63 mL/min (90-120)
--- NOTE | 2019-11-02 15:40 | NUR ---
IN ROOM TO ADMINISTER NTG, PT DENIES CHEST PAIN AT THIS TIME, WILL HOLD MEDICATION.
[2019-11-02 15:46] LABS: APTT 29.2 SECONDS (22.8-39.4); INR 1.01 (0.85-1.17); PROTIME 12.8 SECONDS (11.6-15.0)
[2019-11-02 15:48] LABS: ALBUMIN 3.6 g/dL (3.4-5.0); ALKALINE PHOSPHATASE 123 U/L (46-116); ALT (SGPT) 29 U/L (10-68); BILIRUBIN - TOTAL 0.55 mg/dL (0.2-1.3); CKMB 0.6 U/L (0.0-3.6); CREATINE KINASE 71 UL (21-232); MAGNESIUM - SERUM 1.9 mg/dL (1.8-2.4); PROTEIN - SERUM 7.3 g/dL (6.4-8.2); TROPONIN-I < 0.017 ng/mL (0.000-0.060)
[2019-11-02 16:58] VITALS: BP 138/67
[2019-11-02] MEDS ORDERED: NAPROXEN SODIU220 M1 PO (19:11)
--- NOTE | 2019-11-02 19:29 | NUR ---
RECEIVED BEDSIDE REPORT. PATIENT IS ALERT AND ORIENTED, RESTING COMFORTABLY IN BED. RESPIRATIONS ARE EVEN AND UNLABORED. NO S/S OF DISTRESS. NO C/O PAIN. QUICK START, MED REC AND HX COMPLETE. BRITTON ALEGRE SENIOR JAVASCRIPT DEVELOPER HERE TO SEE HIM. CALL LIGHT WITHIN REACH. WILL CPOC.
[2019-11-02 21:07] LABS: CKMB 0.5 U/L (0.0-3.6); CREATINE KINASE 65 UL (21-232); TROPONIN-I < 0.017 ng/mL (0.000-0.060)
[2019-11-02 22:29] VITALS: BP 127/63; BMI 33.4
[2019-11-03] VITALS: BP 104/59
[2019-11-03 04:00] VITALS: BP 114/52
[2019-11-03 05:05] LABS: BASOPHILS 0.7 % (0-2); EOSINOPHILS 3.4 % (0-7); HEMATOCRIT 41.8 % (42.0-54.0); HEMOGLOBIN 13.6 g/dL (13.5-17.5); IMMATURE GRANULOCYTES 0.2 % (0-5); LYMPHOCYTES 38.4 % (15-50); MCH 30.4 pg (26.0-34.0); MCHC 32.5 g/dL (31.0-37.0); MCV 93.5 fL (80.0-100.0); MEAN PLATELET VOLUME 9.4 fL (7.4-10.4); MONOCYTES 10.7 % (2-11); NEUTROPHILS 46.6 % (40-80); PLATELET COUNT 189 10x3/uL (130-400); RBC 4.47 10x6/uL (4.20-6.10); RDW 12.9 % (11.5-14.5); WBC 5.5 10x3/uL (4.8-10.8)
[2019-11-03 05:20] LABS: APTT 32.7 SECONDS (22.8-39.4); INR 1.09 (0.85-1.17); PROTIME 13.6 SECONDS (11.6-15.0)
[2019-11-03 05:59] LABS: CALC OSMOLALITY 287 mosm/kg (275-300); CALCIUM 8.5 mg/dL (8.5-10.1); CARBON DIOXIDE 27.5 mmol/L (21.0-32.0); CHLORIDE - SERUM 107 mmol/L (98-107); CKMB 0.7 U/L (0.0-3.6); CREATINE KINASE 65 UL (21-232); CREATININE - SERUM 1.1 mg/dL (0.6-1.3); GLUCOSE 94 mg/dL (74-106); PHOSPHOROUS 2.9 mg/dL (2.5-4.9); SODIUM 143 mmol/L (136-145); UREA NITROGEN 22 mg/dL (7-18); eGFR NON AFRICAN AMERICAN 70 mL/min (90-120)
[2019-11-03 06:00] LABS: POTASSIUM - SERUM 4.5 mmol/L (3.5-5.1); TROPONIN-I < 0.017 ng/mL (0.000-0.060)
[2019-11-03 08:26] VITALS: BP 128/62
[2019-11-03 08:41] LABS: CKMB 0.4 U/L (0.0-3.6); CREATINE KINASE 69 UL (21-232)
[2019-11-03 08:44] LABS: TROPONIN-I < 0.017 ng/mL (0.000-0.060)
[2019-11-03 09:06] VITALS: Ht 188 cm; Wt 118.2 kg
--- NOTE | 2019-11-03 15:44 | NUR ---
REVIEWED DISCHARGE INSTRUCTIONS PT STATES UNDERSANDING COPY GIVEN DCD SALINE LOCK TO LFA WITH IV CATHETER INTACT SITE FREE OF REDNESS OR EDEMA PT DISCHARGED HOME LEFT UNIT VIA W/C WITH ALL PERSONAL BELONGINGS
--- NOTE | 2019-11-05 09:47 | MORECARE ---
CASE MANAGEMENT DISCHARGE SUMMARY PATIENT: NAYA ROCHA UNIT: [id number] ADM DATE: 11/02/19 AGE: 69 : 46 SEX: M ROOM/BED: D.2116 AUTHOR: PATTI HUSAIN PHYSICIAN: REFERRING PHYSICIAN: SHERRELL SERRANO MD DATE OF SERVICE: 11/05/19 Discharge Plan Patient Name: NAYA ROCHA [facility] 1950 Planned Disposition: Home Anticipated Discharge Date: 11/03/19 Discharge Date: 11/03/2019 Expected LOS: 1 Initial Reviewer: [email or web address] Initial Review Date: 11/05/2019 Generated: 11/05/19 10:47 am Coverage Notice Reviewer: [email or web address] Brittany Day Notice Issued Date-Time: 11/02/2019 17:58 Notice Type: Medicare Outpatient Observation Notice Notice Delivered To: Patient Relationship to Patient: Self Kindergartner Name: Naya Rocha Delivery Method: HAND - Hand Delivered Praveena Days: Prior Verbal Notification: Recipient Understood Notice: Yes Recipient Signature: Yes Med Rec Note Co-signed by Attending: Coverage Notice Comment: GRIFFIN delivered to and signed by patient. Original given to patient and one placed on chart. Patient Name: NAYA ROCHA Page [phone] at 0947 All edits/amendments must be made on the electronic document DICTATION DATE: 11/05/19946 IMPROVEMENT SPECIALIST: NEW 11/05/19946 RPT#: [id number] DC DATE:11/03/19 STATUS: DIS IN [facility] [address] [place] [address] END OF REPORT
== END 2019-11-03 15:44 | disposition home or self-care (01) ==
LOC: D.ER 14:44 → D.M2 17:49 → OBSVTIME 17:49 → D.M2 17:49
PROVIDERS: Family Medicine; ADMIT Internal Medicine Nephrology; ATTEND Internal Medicine Nephrology
DX: I25.119 Atherosclerotic heart disease of native coronary artery with unspecified angina pectoris (principal); I10 Essential (primary) hypertension; E78.5 Hyperlipidemia, unspecified

== ENCOUNTER → 2019-11-06 12:58 | Outpatient (CLI) | payer MEDICARE, BC ==
[2019-11-03 09:06] VITALS: BMI 33.4
== END | disposition home or self-care (01) ==
LOC: D.CT 12:58
PROVIDERS: ATTEND Family Medicine
DX: R06.00 Dyspnea, unspecified (principal)

== ENCOUNTER → 2021-01-13 11:33 | Outpatient (CLI) | payer MEDICARE, BC ==
[2019-11-03 09:06] VITALS: BMI 33.4
[2021-01-13 12:57] LABS: CREATININE - SERUM 1.2 mg/dL (0.6-1.3)
== END | disposition home or self-care (01) ==
LOC: D.CT 11:30
PROVIDERS: ATTEND General Practice
DX: N28.89 Other specified disorders of kidney and ureter (principal)

== ENCOUNTER 2021-03-30 11:38 | Day surgery (SDC) | payer MEDICARE, BC ==
[~2021-03-30] VITALS: Ht 188 cm; Wt 118.2 kg
[2021-03-30 12:02] LABS: BASOPHILS 1.2 % (0-2); EOSINOPHILS 1.4 % (0-7); HEMOGLOBIN 14.3 g/dL (13.5-17.5); LYMPHOCYTES 26.1 % (15-50); MCH 30.2 pg (26.0-34.0); MCHC 33.2 g/dL (31.0-37.0); MCV 91.1 fL (80.0-100.0); MEAN PLATELET VOLUME 7.1 fL (7.4-10.4); MONOCYTES 9.4 % (2-11); NEUTROPHILS 61.9 % (40-80); RBC 4.72 10x6/uL (4.20-6.10); WBC 6.6 10x3/uL (4.8-10.8)
[2021-03-30 12:05] LABS: ANION GAP 14.7 mmol/L (8-16); CALCIUM 9.1 mg/dL (8.5-10.1); CARBON DIOXIDE 25.7 mmol/L (21.0-32.0); CREATININE - SERUM 1.1 mg/dL (0.6-1.3); POTASSIUM - SERUM 4.4 mmol/L (3.5-5.1)
[2021-03-30 12:10] LABS: PLATELET COUNT 245 10x3/uL (130-400)
[2021-03-30 12:20] LABS: INR 1.12 (0.85-1.17); PROTIME 13.3 SECONDS (11.6-15.0)
[2021-03-30 13:38] VITALS: BP 115/55; Ht 188 cm; Wt 118.2 kg
--- NOTE | 2021-03-30 15:12 | NUR ---
DC TEACHING TO PT AND , ACKNOWLEDGED UNDERSTANDIING. 1537 PIV DC'D CATHETER INTACT, HELPING PT TO GET DRESSED. 1543 DC'D VIA WC ACCOMPANIED BY THIS NURSE TO POV WITH DRIVING. ALL BELONGINGS WITH PT/
--- NOTE | 2021-04-01 06:46 | OP ---
PATIENT NAME: NAYA BLANTON MEDICAL RECORD: [id number] :46 LOCATION:[facility] ADMISSION DATE: SURGEON: PARISH GIBSON DO DATE OF OPERATION: 03/30/2021 PROCEDURE: Colonoscopy with polypectomy. INDICATION FOR PROCEDURE: Screening colonoscopy with a history of diverticulosis. SCOPE: Zannel video pediatric colonoscope. MEDICATIONS: Propofol 500 mg IV per anesthesia. WITHDRAWAL TIME: 25 minutes. ESTIMATED BLOOD LOSS: Minimal. COMPLICATIONS: None. FINDINGS: Informed consent was given. The patient was made comfortable with the above medication. After reaching an adequate level of sedation by slow IV push, the patient was placed on his left side. A digital rectal examination was performed and was normal. The endoscope was advanced under direct visualization through the rectum to the cecum, confirmed by the presence of the appendiceal orifice and ileocecal valve. The endoscope was slowly withdrawn and the mucosa was carefully examined. The prep quality was good. There was evidence of moderate diverticulosis involving the descending and sigmoid colon. There were grade I internal hemorrhoids visualized upon retroflexion in the rectum. There was a single lesion identified on today's examination, which was at approximately 60 cm from the anal verge in the descending colon. This was a polypoid lesion, which could have possibly been an inverted diverticulum. The lesion measured approximately 4-5 cm in length. There was no obvious adenomatous tissue involved with this, but due to its length it was removed. For removal, a single endoclip was applied at the base of this elongated structure followed by hot snare polypectomy just distal to the endoclip site. The maneuver was successful. The tissue was removed with the endoscope. The endoscope was withdrawn from the patient. The patient tolerated the procedure well and there were no complications. IMPRESSION: 1. Moderate diverticulosis without diverticulitis. 2. Grade I internal hemorrhoids without bleeding. 3. Polypoid lesion as described above, status post removal. TRANSINT:[id number] Voice Confirmation ID: [id number] DOCUMENT ID: [id number] OPERATIVE REPORT [id number] NAYA BLANTON PARISH GIBSON DO at 0646 CC: [id number] DICTATION DATE: 03/30/21 1436 [employer]DI[facility] RECOVERY SPECIALIST: 04/01/21 0025 [facility] 03/30/21 [facility] [address] [place] [address]
== END 2021-03-30 15:43 | disposition home or self-care (01) ==
LOC: D.OPS 11:38
PROVIDERS: Anesthesiology; ATTEND Internal Medicine Gastroenterology
DX: Z12.11 Encounter for screening for malignant neoplasm of colon (principal); K57.30 Diverticulosis of large intestine without perforation or abscess without bleeding; K64.0 First degree hemorrhoids; K51.40 Inflammatory polyps of colon without complications

== ENCOUNTER 2021-04-15 21:41 | Emergency (ER) | payer MEDICARE, BC ==
[~2021-04-15] VITALS: Ht 188 cm; Wt 116.4 kg
[2021-04-15 22:01] VITALS: Ht 188 cm; Wt 116.4 kg
[2021-04-15 22:17] LABS: BILIRUBIN NEGATIVE (NEGATIVE); KETONE NEGATIVE (NEGATIVE); NITRITE NEGATIVE (NEGATIVE); UROBILINOGEN NORMAL mg/dL (< 2)
[2021-04-15 22:44] LABS: BASOPHILS 0.9 % (0-2); EOSINOPHILS 1.7 % (0-7); HEMATOCRIT 42.6 % (42.0-54.0); LYMPHOCYTES 15.3 % (15-50); MCH 30.3 pg (26.0-34.0); MCV 91.7 fL (80.0-100.0); MEAN PLATELET VOLUME 7.2 fL (7.4-10.4); MONOCYTES 13.1 % (2-11); PLATELET COUNT 200 10x3/uL (130-400); RBC 4.64 10x6/uL (4.20-6.10); RDW 13.8 % (11.5-14.5); WBC 5.7 10x3/uL (4.8-10.8)
[2021-04-15 22:52] LABS: CALC OSMOLALITY 276 mosm/kg (275-300); CALCIUM 8.7 mg/dL (8.5-10.1); CARBON DIOXIDE 28.6 mmol/L (21.0-32.0); CHLORIDE - SERUM 103 mmol/L (98-107); CREATININE - SERUM 1.3 mg/dL (0.6-1.3); GLUCOSE 113 mg/dL (74-106); POTASSIUM - SERUM 4.3 mmol/L (3.5-5.1); SODIUM 137 mmol/L (136-145); UREA NITROGEN 19 mg/dL (7-18); eGFR NON AFRICAN AMERICAN 58 mL/min (90-120)
[2021-04-15 23:00] LABS: ALBUMIN 3.3 g/dL (3.4-5.0); ALKALINE PHOSPHATASE 131 U/L (30-120); ALT (SGPT) 19 U/L (10-68); AMYLASE - SERUM 32 U/L (25-115); BILIRUBIN - TOTAL 0.42 mg/dL (0.2-1.3); LIPASE 63 U/L (73-393); PROTEIN - SERUM 7.1 g/dL (6.4-8.2); TROPONIN-I < 0.017 ng/mL (0.000-0.060)
[2021-04-16] MEDS ORDERED: FLAGYL500 MG PO (00:40)
[2021-04-16 00:46] VITALS: BP 126/60
== END 2021-04-16 00:46 | disposition home or self-care (01) ==
LOC: D.ER 21:41
PROVIDERS: Family Medicine
DX: I88.0 Nonspecific mesenteric lymphadenitis (principal); K43.9 Ventral hernia without obstruction or gangrene; R10.13 Epigastric pain; I10 Essential (primary) hypertension